=== PATIENT | male | born 1965 ===

== ENCOUNTER 2020-06-25 09:39 | Outpatient (REF) | payer OTHER, SELFPAY ==
[2020-06-25 10:38] LABS: MANUAL DIFF FLAG NO
[2020-06-25 10:41] LABS: Basophils Absolute Auto 0.1 X10*3/uL (0.0-0.2); Basophils Percent Auto 1.8 % (0-2); Eosinophils Absolute Auto 0.5 X10*3/uL (0.0-0.4); Eosinophils Percent Auto 10.7 % (0-4); Hematocrit 50.2 % (42-52); Imm Gran Abs Auto 0.02 X10*3/uL (0.00-0.03); Imm Gran Pct Auto 0.4 % (0.0-0.4); Lymphocytes Absolute Auto 1.9 X10*3/uL (1.2-4.9); Lymphocytes Percent Auto 37.4 % (20-40); Mean Corpuscular HGB Conc 33.9 g/dl (31.0-36.0); Mean Corpuscular Hemoglobin 31.1 pg (27.0-33.0); Mean Corpuscular Volume 91.8 fL (80-98); Mean Platelet Volume 9.5 fL (9.4-12.4); Monocytes Absolute Auto 0.6 X10*3/uL (0.1-1.2); Monocytes Percent Auto 11.3 % (2-11); Neutrophils Absolute Auto 1.9 X10*3/uL (2.0-8.3); Neutrophils Percent Auto 38.4 % (45-73); Platelet Count 219 X10*3/uL (160-400); Red Blood Count 5.47 X10*6/uL (4.60-5.80); Red Cell Distribution Width 13.2 % (11.0-16.0)
[2020-06-25 11:05] LABS: Glucose Urine UA NEG (NEG); Leukocyte Esterase Urine NEG (NEG); Nitrite Urine NEG (NEG); Urine Blood NEG (NEG); Urine Ketones NEG (NEG); Urine Protein NEG (NEG-TRACE)
[2020-06-25 11:07] LABS: Appearance Urine CLEAR; Color Urine YELLOW
[2020-06-25 11:15] LABS: Alanine Aminotransferase 111 U/L (0-40); Albumin Level 4.5 g/dL (3.5-5.0); Alkaline Phosphatase 60 U/L (39-117); Anion Gap 12 (12-20); Aspartate Amino Transferase 43 U/L (5-37); Bilirubin Total 0.9 mg/dL (0.0-1.0); Blood Urea Nitrogen 20 mg/dL (9-16); Calcium 9.4 mg/dL (8.4-10.2); Carbon Dioxide 30 mmol/L (22-29); Chloride 105 mmol/L (96-108); Cholesterol 178 mg/dL; Estimated Glomerular Filt Rate > 60; Glucose Fasting 105 mg/dL (60-99); HDL Cholesterol 42 mg/dL; LDL Cholesterol Calculated 108 mg/dl; Potassium 4.6 mmol/L (3.3-5.1); Sodium 142 mmol/L (135-145); Total Protein 7.4 g/dL (6.5-8.0); Triglycerides 143 mg/dL
[2020-06-25 11:41] LABS: Prostate Specific Antigen Scr 2.37 ng/mL (<0.05-4.0); TSH reflex Free T4 1.57 uIU/mL (0.32-4.0)
== END 2020-06-25 09:40 | disposition home or self-care (01) ==
LOC: HO.WFDLDS 09:39
PROVIDERS: Visit Provider Family Medicine
DX: Z12.5 Encounter for screening for malignant neoplasm of prostate (principal); Z00.00 Encounter for general adult medical examination without abnormal findings; R39.11 Hesitancy of micturition; R06.02 Shortness of breath; R09.02 Hypoxemia; Z86.16 Personal history of COVID-19
CPT/HCPCS: 36415; 80053; 80061; 81003; 84153; 84443; 85025

== ENCOUNTER 2020-10-01 08:39 | Outpatient (REF) | payer OTHER, SELFPAY ==
[2020-10-01 11:56] LABS: Alanine Aminotransferase 75 U/L (0-40); Albumin Level 4.2 g/dL (3.5-5.0); Alkaline Phosphatase 65 U/L (39-117); Anion Gap 12 (12-20); Aspartate Amino Transferase 30 U/L (5-37); Bilirubin Total 0.9 mg/dL (0.0-1.0); Blood Urea Nitrogen 19 mg/dL (9-16); Calcium 9.2 mg/dL (8.4-10.2); Carbon Dioxide 26 mmol/L (22-29); Chloride 106 mmol/L (96-108); Estimated Glomerular Filt Rate > 60; Glucose Fasting 105 mg/dL (60-99); Potassium 4.4 mmol/L (3.3-5.1); Sodium 140 mmol/L (135-145); Total Protein 6.7 g/dL (6.5-8.0)
== END 2020-10-01 08:40 | disposition home or self-care (01) ==
LOC: HO.WFDLDS 08:39
PROVIDERS: PCP Family Medicine; Visit Provider Family Medicine
DX: Z00.00 Encounter for general adult medical examination without abnormal findings (principal); R74.01 Elevation of levels of liver transaminase levels
CPT/HCPCS: 36415; 80053

== ENCOUNTER 2021-03-09 08:27 | Outpatient (REF) | payer OTHER, SELFPAY ==
[2021-03-09 11:25] LABS: Estimated Average Glucose 117 mg/dL; Hemoglobin A1C 149.8956 umol/L; Hemoglobin A1c % 5.7 %
[2021-03-09 11:30] LABS: Alanine Aminotransferase 85 U/L (0-40); Albumin Level 4.1 g/dL (3.5-5.0); Alkaline Phosphatase 61 U/L (39-117); Anion Gap 12 (12-20); Aspartate Amino Transferase 32 U/L (5-37); Bilirubin Total 0.7 mg/dL (0.0-1.0); Blood Urea Nitrogen 17 mg/dL (9-16); Carbon Dioxide 25 mmol/L (22-29); Chloride 107 mmol/L (96-108); Estimated Glomerular Filt Rate > 60; Glucose Fasting 106 mg/dL (60-99); Potassium 4.3 mmol/L (3.3-5.1); Sodium 140 mmol/L (135-145); Total Protein 6.9 g/dL (6.5-8.0)
== END 2021-03-09 08:28 | disposition home or self-care (01) ==
LOC: HO.WFDLDS 08:27
PROVIDERS: Hospitalist; Visit Provider Family Medicine
DX: Z00.00 Encounter for general adult medical examination without abnormal findings (principal); R74.01 Elevation of levels of liver transaminase levels; R73.01 Impaired fasting glucose
CPT/HCPCS: 36415; 80053; 83036

== ENCOUNTER 2021-05-24 08:21 | Outpatient (REF) | payer OTHER, SELFPAY ==
--- NOTE | ~2021-05-24 | US_ITS ---
EXAMINATION: US ABDOMEN LIMITED WITH LIVER ELASTOGRAPHY CLINICAL INFORMATION: Elevated transaminase. COMPARISON: None. TECHNIQUE: Real-time imaging of the abdominal viscera. Noninvasive ultrasound liver fibrosis assessment is performed using Brenton ElastPQ point quantification shear wave elastography (2D-SWE) with a C5-2 MHz transducer. Multiple elastography samples are obtained. FINDINGS: PANCREAS: The visualized pancreatic head and body are normal in appearance. The remainder of the pancreas is obscured from visualization by the overlying bowel gas. LIVER: The liver demonstrates normal size, contour and increased echogenicity. There is focal fatty sparing adjacent to the gallbladder No focal lesion or intrahepatic biliary duct dilatation. The right lobe measures 16.5 cm in length. The left lobe measures 10.9 cm in length. Portal flow is hepatopedal. Shear wave liver elastography median stiffness is 1.47 m/s (reference: normal median stiffness is 1.3 m/s or less). IQR/median stiffness to assess sampling precision is 0.19 (reference: good quality data set is IQR/median stiffness of 0.15 or less). GALLBLADDER: Normal. The gallbladder is physiologically distended without evidence of stones, sludge, polyps, wall thickening or pericholecystic fluid. COMMON BILE DUCT: Normal in caliber measuring 0.4 cm in diameter. RIGHT KIDNEY: There is anechoic cyst in the upper pole measuring 1.6 x 0.8 x 1.5 cm. There is mild pelvic fullness. No hydronephrosis. No renal calculi or focal parenchymal lesions. The kidney measures 14.9 cm in maximum dimension. FREE FLUID: None. US/US abdomen oneil w elastography IMPRESSION: 1. Diffuse echogenic liver with focal fatty sparing adjacent to the gallbladder. Anechoic cyst with calcification in the upper pole right kidney, Bosniak type II. 2. Liver elastography: Mean liver stiffness 1.47 m/s suggestive of cACLD (ruled out) REFERENCE: Society of Radiologists in Ultrasound Liver Stiffness Thresholds (2019): LIVER STIFFNESS THRESHOLDS: *Liver Stiffness equal or less than 1.3 m/s: High probability of being normal. *Liver Stiffness less than 1.7 m/s: In the absence of other known clinical signs, rules out compensated advanced chronic liver disease. *Liver Stiffness 1.7-2.1 m/s: Suggestive of compensated advanced chronic liver disease but need further test for confirmation. *Liver Stiffness over 2.1 m/s: Rules in compensated advanced chronic liver disease. *Liver Stiffness over 2.4 m/s: Suggestive of clinically significant portal hypertension. QUALITY OF DATA SET: *IQR/Median value equal or less than 0.15 implies a quality data set. *IQR/Median value over 0.15 implies a poor quality data set. SIGNIFICANT CHANGE FROM PRIOR EXAM: Significant change if liver stiffness measurement is 10% or greater from prior exam. OTHER CONSIDERATIONS: The stage of liver fibrosis may be overestimated in the setting of acute hepatitis, liver inflammation, elevated liver function tests, hepatic vascular congestion, obstructive cholestasis, non-fasting state, and infiltrative diseases such as amyloidosis and lymphoma. In some patients with NAFLD, the liver stiffness thresholds for compensated advanced chronic liver disease may be lower. In causes other than viral hepatitis and NAFLD, liver stiffness thresholds are not well established.
== END 2021-05-24 08:22 | disposition home or self-care (01) ==
LOC: HO.US 08:21
PROVIDERS: PCP Family Medicine; Visit Provider Family Medicine
DX: R74.01 Elevation of levels of liver transaminase levels (principal)
CPT/HCPCS: 76705; 76981

== ENCOUNTER 2021-09-02 07:59 | Outpatient (REF) | payer OTHER, SELFPAY ==
--- NOTE | ~2021-09-02 | US_ITS ---
EXAMINATION: US RETROPERITONEAL LIMITED (RENAL ONLY) CLINICAL INFORMATION: Cyst of kidney, acquired. COMPARISON: Ultrasound abdomen limited 05/24/2021. TECHNIQUE: Real-time imaging of the kidneys. FINDINGS: RIGHT KIDNEY: 13.9 x 6.0 x 8.2 cm (SAG x AP x TRV). The kidney is normal in size, contour, and echogenicity. Renal cortical thickness is normal. There may be a duplicated right renal collecting system. There are several right renal cysts. Largest measures 1.5 cm with peripheral calcification. No renal calculi or hydronephrosis. LEFT KIDNEY: 13.2 x 6.4 x 6.3 cm (SAG x AP x TRV). The kidney is normal in size, contour, and echogenicity. Renal cortical thickness is normal. There are multiple peripelvic left renal cysts. Largest cyst measures 2.7 x 1.6 x 1.4 cm in the upper pole. No renal calculi or hydronephrosis. US/US renal BI IMPRESSION: Bilateral renal cysts similar to April 2021 exam.
== END 2021-09-02 08:00 | disposition home or self-care (01) ==
LOC: HO.US 07:59
PROVIDERS: Visit Provider Family Medicine
DX: N28.1 Cyst of kidney, acquired (principal)
CPT/HCPCS: 76775

== ENCOUNTER → 2022-05-30 12:58 | Outpatient (BNVA) | payer OTHER, SELFPAY | PROVIDERS: PCP Family Medicine; Visit Provider Nurse Practitioner Family | DX: G47.30 Sleep apnea, unspecified (principal); G47.19 Other hypersomnia; R06.83 Snoring | CPT/HCPCS: 99202 ==

== ENCOUNTER → 2022-06-02 14:26 | Outpatient (REF) | payer OTHER, SELFPAY | LOC: HO.SL 14:26 | PROVIDERS: Visit Provider Nurse Practitioner Family | DX: G47.33 Obstructive sleep apnea (adult) (pediatric) (principal); G47.19 Other hypersomnia | CPT/HCPCS: 95806 ==

== ENCOUNTER → 2022-09-19 14:27 | Outpatient (BNVA) | payer OTHER, SELFPAY | PROVIDERS: PCP Family Medicine; Visit Provider Nurse Practitioner Family | DX: G47.33 Obstructive sleep apnea (adult) (pediatric) (principal); Z99.89 Dependence on other enabling machines and devices | CPT/HCPCS: 99212 ==

== ENCOUNTER 2023-11-27 10:22 | Outpatient (AMB) | payer OTHER, SELFPAY ==
--- NOTE | 2023-11-27 10:25 | MHC.PC.OV ---
Vital Signs 11/27/23 10:28 Height 6 ft 3 in Weight 236 lb 6 oz BMI 29.5 BP 110/62 Blood Pressure Location Lt brachial Position Sitting Pulse 74 Pulse Source Pulse Oximeter Pulse Oximetry (%) 97 Oxygen Delivery Method Room Air Intake Visit Reasons: f/u chronic conditions Intake Note: Patient is here to follow up on ERIK, Asthma, Pre-DM. Natural Sciences Department Chair Required: No Training Program Manager: Not Required per policy Accompanied by: Self / Same As Patient Allergies Sulfa (Sulfonamide Antibiotics) Allergy (Mild, Verified 11/27/23 10:28) Rash Tobacco use date assessed: 11/27/23 Dental Screening Dental Screen Date: 11/27/23 Did you have a dental visit in the last 12 months?: Yes Did you have a dental problem in the last 6 months where you did not have access to dental care?: No Was dental information given to patient?: Patient has dentist HPI f/u chronic conditions HPI Details 58 y/o male presents to f/u chronic conditions such as elevated liver enzymes, pre-diabetes. No recent labs to review. Last A1c 05/29/22 5.9%. A1c today 11/27/23 is 5.5%. Had seen sleep medicine and is now on a CPAP machine. He reports sleep much improved. He reports asthma has worsened - pt states he had went to the ED and cardiac work up was negative. [facility] Medical History Lyme disease Surgical History Hx of tonsillectomy Social History Housing: House Alcohol intake: current Alcohol intake frequency: holidays/special occasions only Patient Tobacco Use Status: Never used Tobacco e-Cigarette/Vaping Use: Never Used Second Hand Smoke Exposure: No service: No Current occupational status: employed Cognitive needs: No Hearing needs: No Vision needs: Yes (Glasses) Questionnaire PHQ-9 Over the last 2 weeks, how often have you been bothered by any of the following problems? 1. Little interest or pleasure in doing things: not at all 2. Feeling down, depressed, or hopeless: not at all 3. Trouble falling or staying asleep, or sleeping too much: not at all 4. Feeling tired or having little energy: not at all 5. Poor appetite or overeating: not at all 6. Feeling bad about yourself - or that you are a failure or have let yourself or your family down: not at all 7. Trouble concentrating on things, such as reading the newspaper or watching television: not at all 8. Moving or speaking so slowly that other people could have noticed. Or the opposite - being so fidgety or restless that you have been moving around a lot more than usual: not at all 9. Thoughts that you would be better off or of hurting yourself in some way: not at all Total score: 0 Depression Screening Interpretation: Negative Depression Screening Done: Yes Source: Developed by Drs. Milan Robert, Elizabeth Foy, Byron Gamboa and colleagues, with an educational bita from [employer]. Thrive Questionnaire Date Thrive assessed: 11/27/23 I am a: Patient What is your living situation today?: I have a steady place to live Within the past 12 months, did the food you bought not last and you didn't have the money to get more?: Never true Within the past 12 months, did you worry whether your food would run out before you got money to buy more?: Never true Do you have trouble paying for medicines?: No Do you have trouble getting transportation to medical appointments?: No Do you have trouble paying your heating and electricity bill?: No Do you have trouble taking care of your child, family member or friend?: No Do you have trouble with day-to-day activities such as bathing, preparing meals, shopping, managing finances, etc.?: No Are you currently unemployed and looking for a job?: No Are you interested in more education?: No Currently or been in a relationship where the following occur: No concerns reported THRIVE Score: 0 AUDIT C Alcohol Use Questionnaire (AUDIT-C) 1. How often do you have a drink containing alcohol?: Monthly or less Total Score: 1 KYLE-7 AMB Questionnaire KYLE-7 Date KYLE - 7 assessed: 11/27/23 Feeling nervous, anxious, or on edge: 0 = Not at all Not being able to stop or control worryin = Not at all Worrying too much about different things: 0 = Not at all Trouble relaxin = Not at all Being so restless that it is hard to sit still: 0 = Not at all Becoming easily annoyed or irritable: 0 = Not at all Feeling afraid as if something awful might happen: 0 = Not at all Total KYLE-7 score (0-4 normal; 5-9 mild; 10-14 moderate; 15-21 severe): 0 Source: Developed by Drs. Milan Rboert, Elizabeth Foy, Byron Gamboa and colleagues, with an educational bita from [employer]. Review of Systems Const Denies chills, Denies fatigue, Denies fever(s), Denies headache(s) and Denies weakness ENT Denies dizziness and Denies headache(s) Card Denies dyspnea Resp Denies cough, Denies dyspnea, Denies wheezing and Denies other (shortness of breath) Musc Denies numbness and Denies tingling Neuro Denies dizziness, Denies headache(s), Denies numbness, Denies tingling and Denies weakness Psych Denies anxiety and Denies depression Endo Denies fatigue Aller/Immun Denies wheezing Physical exam (Primary Care) Vital Signs: Last Vital Signs Pulse 74 11/27/23 10:28 BP 110/62 11/27/23 10:28 Pulse Ox 97 11/27/23 10:28 Oxygen Delivery Method Room Air 11/27/23 10:28 BMI result Body Mass Index 29.5 Tobacco/Smoking Status: Tobacco use Status Tobacco use date assessed 11/27/23 11/27/23 10:33 Patient Tobacco Use Status Never used Tobacco 11/27/23 10:33 e-Cigarette/Vaping Use Never Used 11/27/23 10:33 PHQ-9: PHQ-9 Score PHQ-9: Total score 0 11/27/23 10:51 Depression Screening Interpretation: Negative Thrive Assessment: Date of Thrive Assessment Date Thrive assessed 11/27/23 11/27/23 10:33 Currently or been in a relationship where the following occur: No concerns reported Const General: well developed; No acute distress Nutritional Appearance: well nourished Orientation/consciousness: patient oriented x3 HENMT Head: Yes normocephalic and Yes atraumatic Eyes General: appearance normal, both eyes and all related structures Pupils: Equal, round and reactive pupils present EOM: EOMs intact bilaterally Resp Other: Coarse breath sounds Effort & Inspection: normal respiratory effort Auscultation: clear to auscultation bilaterally Cardio Rate: regular rate Rhythm: regular rhythm Heart sounds: S1 normal heart sound present, S2 normal heart sound present, no gallops, no murmurs and no rubs Neuro General: patient oriented x3 and gait normal Cranial nerves: Yes Equal, round and reactive pupils present Psych Affect: normal affect Results AMB Hemoglobin A1c AMB Hemoglobin A1c 5.5 % Last Edit by NASEEM Pal on 11/27/23 11:11 Assessment and Plan Assessment & Plan (1) Pre-diabetes: Code(s): R73.03 - Prediabetes Plan: Patient?has?adjusted?his?carbohydrate?intake. A1c?today?5.5%?is?back?in?top?normal?range Continue?decreased?carbohydrate?intake?and?I?encouraged?weight?loss?and?exercise We?can?follow?periodically (2) Elevated liver transaminase level: Code(s): R74.01 - Elevation of levels of liver transaminase levels Plan: Patient?will?get?labs?drawn?and?we?can?follow-up?on?liver?enzymes?at?next?visit Encouraged?weight?loss (3) ERIK on CPAP: Comment: Severe degree of sleep apnea. The AHI was 24/hr and oxygen mariaa was 79% Code(s): G47.33 - Obstructive sleep apnea (adult) (pediatric); Z99.89 - Dependence on other enabling machines and devices Plan: Patient?feels?much?better?and?more?rested?after?sleeping Blood?pressure?has?improved?as?well Continue?CPAP.??Follow-up?with?sleep?medicine?as?recommended (4) Asthma: Code(s): J45.909 - Unspecified asthma, uncomplicated Plan: Coarse?but?clear?breath?sounds History?of?exposure?to?particulate?matter/saw?dust Had?tried?rescue?inhaler?in?the?past?and?patient?had?difficulty?with?rapid?heart?rate?and?difficulty?getting?alternative?such?as?leave?albuterol Will?trial?a?controller?medication?with LABA and?steroid - if?this?is?causing?rapid?heart?rate?I?will?switch?to?steroid?only Will?send?script?for?a?rescue?inhaler?as?well?and?he?will?use?only?as?needed Referred?to?pulmonology Will?follow-up?in?a?month?to?ensure?he?has?an?appointment?with?pulmonology?and?see?how?he?is?doing?with?medications?and?make?adjustments?as?needed Orders: Orders Comprehensive [place]. Panel Fast Today R74.01 - Elevation of levels of liver transaminase levels, Z00.00 - Encounter for general adult medical examination without abnormal findings AMB Hemoglobin A1c Today R73.03 - Prediabetes Referrals Pulmonology Referral R06.02 - Shortness of breath Medications: New fluticasone propion-salmeterol 115-21 mcg/actuation (Advair HFA) 2 puffs inhalation Q12H 30 days 12 grams 1RF albuterol sulfate 90 mcg/actuation (Ventolin HFA) 1 puff inhalation Q4-6H 30 days PRN 8.5 grams 2RF shortness of breath or wheezing Coding Level of Care Code Est Pt Level 4 (46641) Diagnoses Pre-diabetes R73.03 Elevated liver transaminase level R74.01 ERIK on CPAP G47.33; Z99.89 Asthma J45.909
[2023-11-27 10:28] VITALS: BP 110/62; PULSE 74; O2SAT 97; BMI 29.5
== END 2023-11-27 11:16 | disposition home or self-care (01) ==
PROVIDERS: PCP Family Medicine; Visit Provider Family Medicine
DX: R73.03 Prediabetes (principal); R74.01 Elevation of levels of liver transaminase levels; G47.33 Obstructive sleep apnea (adult) (pediatric); Z99.89 Dependence on other enabling machines and devices; J45.909 Unspecified asthma, uncomplicated
CPT/HCPCS: 83036; 99214

== ENCOUNTER 2023-12-05 09:21 | Outpatient (AMB) | payer OTHER, SELFPAY ==
--- NOTE | 2023-12-05 09:25 | A.OFFVIS_ITS ---
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 He was referred by PCP for pulmonary evaluation. He reports dyspnea on exertion and nonproductive cough that developed a few months ago. Recently he notes that cough is improving after discovering mold in two mini splits at his home. Denies wheezing or chest tightness. Since improvements he has been using advair less frequently and has not required albuterol. Of note, when he has used albuterol MDI in the past, it has resulted in significant tremors, requesting levalbuterol. He reports seasonal allergies, no recent allergy testing. He has two dogs at home. He reports occupational exposure, working at a [employer] x 40+ years. He reports father, smoker, with COPD, otherwise no pertinent family history. [facility] Medical History Lyme disease Surgical History Hx of tonsillectomy Social History Housing: House Alcohol intake: current Alcohol intake frequency: holidays/special occasions only Patient Tobacco Use Status: Never used Tobacco e-Cigarette/Vaping Use: Never Used Second Hand Smoke Exposure: No service: No Current occupational status: employed Cognitive needs: No Hearing needs: No Vision needs: Yes (Glasses) Review of Systems Const Denies chills, Denies fatigue, Denies fever(s), Denies headache(s) and Denies weakness ENT Reports Normal hearing present, Denies dizziness and Denies headache(s) Card Reports dyspnea Resp Reports cough, Reports dyspnea and Denies wheezing Musc Denies numbness and Denies tingling Neuro Reports Normal hearing present, Denies dizziness, Denies headache(s), Denies numbness, Denies tingling and Denies weakness Psych Denies anxiety and Denies depression Endo Denies fatigue Aller/Immun Denies wheezing Physical Exam Vital Signs: Last Vital Signs Pulse 61 12/05/23 09:28 BP 128/76 12/05/23 09:28 Pulse Ox 98 12/05/23 09:28 Oxygen Delivery Method Room Air 12/05/23 09:28 BMI result Body Mass Index 29.0 Const General: cooperative, healthy appearing, comfortable, no acute distress, well developed and alert Orientation/consciousness: patient oriented x3 Limitations: no limitations HEENT Head: Yes normal to inspection, Yes normocephalic and Yes atraumatic Ears: hearing grossly normal bilaterally and external ears normal Eyes General: appearance normal, both eyes and all related structures Eyelids: Yes eyelids normal Sclerae: sclerae normal EOM: EOMs intact bilaterally Neck Neck: Yes normal visual inspection and Yes no lymphadenopathy Lymphatic: no lymphadenopathy noted Chest Chest palpation & inspection: normal inspection of the chest Resp Effort & Inspection: normal respiratory effort, able to speak in complete sentences, no audible wheezes, no cough, no stridor, not tachypneic, no tripod positioning and no use of accessory muscles Auscultation: clear to auscultation bilaterally Cardio Jugular venous distension: no JVD Rate: regular rate Rhythm: regular rhythm Skin Other: warm, dry General skin exam: no rashes or lesions noted Neuro General: patient oriented x3 Cranial nerves: Yes Normal hearing present Cognition (Neuro): normal cognition Gait exam (Neuro): Normal gait present Extrem General: Yes normal to inspection, Yes capillary refill normal, Yes no clubbing, cyanosis or edema and Yes no pedal edema Psych Appearance: grossly normal and well kempt Speech and movement: Normal speech and movement present and Clear speech present Affect: normal affect Attitude: cooperative Thought process: Normal thought process present Thought content: Normal thought content present Insight: Good insight present (Psych) Judgement: Good judgement present (Psych) Assessment & Plan Assessment & Plan (1) Asthma: Code(s): J45.909 - Unspecified asthma, uncomplicated Category: Medical (2) Environmental allergies: Code(s): Z91.09 - Other allergy status, other than to drugs and biological substances Category: Medical (3) Cough: Code(s): R05.9 - Cough, unspecified Category: Medical Plan Glen reports improvement in symptoms after decreasing mold exposure and has been decreasing his Advair use. He reports significant improvement in dyspnea and cough. At this time, encouraged use to EILEEN PRN and if symptoms recur will discuss restarting Advair. He is requesting levalbuterol, due to adverse effects of albuterol. Will send this in. Will also send for PFT and RAST. Consider imaging if symptoms worsen. All questions were answered and patient is in agreement of plan. Orders: Orders Resp Allergy Profile Region I 12/05/23 Z91.09 - Other allergy status, other than to drugs and biological substances Complete Blood Count Auto Diff 12/05/23 Z91.09 - Other allergy status, other than to drugs and biological substances Immunoglobulin E 12/05/23 Z91.09 - Other allergy status, other than to drugs and biological substances PFT pulmonary function test Today J45.909 - Unspecified asthma, uncomplicated Medications: New levalbuterol tartrate 45 mcg/actuation 1 puff inhalation Q4-6H PRN 15 grams 3RF shortness of breath Coding Level of Care Code New Pt Level 4 (58298) Diagnoses Asthma J45.909 Environmental allergies Z91.09 Cough R05.9
[2023-12-05 09:28] VITALS: BP 128/76; PULSE 61; O2SAT 98; BMI 29.0
== END 2023-12-05 10:10 | disposition home or self-care (01) ==
PROVIDERS: PCP Family Medicine; Referring Provider Family Medicine; Visit Provider Nurse Practitioner Family
DX: J45.909 Unspecified asthma, uncomplicated (principal); Z91.09 Other allergy status, other than to drugs and biological substances; R05.9 Cough, unspecified
CPT/HCPCS: 99204

== ENCOUNTER → 2023-12-05 09:21 | Outpatient (BNVA) | payer OTHER, SELFPAY | PROVIDERS: PCP Family Medicine; Referring Provider Family Medicine; Visit Provider Nurse Practitioner Family | DX: J45.909 Unspecified asthma, uncomplicated (principal); R05.9 Cough, unspecified; Z91.09 Other allergy status, other than to drugs and biological substances | CPT/HCPCS: 99202 ==

== ENCOUNTER 2023-12-05 10:23 | Outpatient (REF) | payer OTHER, SELFPAY ==
[2023-12-05 14:13] LABS: MANUAL DIFF FLAG NO
[2023-12-05 14:19] LABS: Basophils Absolute Auto 0.1 X10*3/uL (0.0-0.2); Basophils Percent Auto 1.3 % (0-2); Eosinophils Absolute Auto 0.3 X10*3/uL (0.0-0.4); Eosinophils Percent Auto 5.7 % (0-4); Hematocrit 48.2 % (42.0-52.0); Hemoglobin 16.8 g/dl (14.0-18.0); Imm Gran Abs Auto 0.01 X10*3/uL (0.00-0.03); Imm Gran Pct Auto 0.2 % (0.0-0.4); Lymphocytes Absolute Auto 1.5 X10*3/uL (1.2-4.9); Mean Corpuscular HGB Conc 34.9 g/dl (31.0-36.0); Mean Corpuscular Hemoglobin 30.8 pg (27.0-33.0); Mean Corpuscular Volume 88.4 fL (80.0-98.0); Mean Platelet Volume 10.2 fL (9.4-12.4); Monocytes Absolute Auto 0.5 X10*3/uL (0.1-1.2); Monocytes Percent Auto 11.9 % (2-11); Neutrophils Absolute Auto 2.1 x10*3/uL (2.0-8.3); Neutrophils Percent Auto 46.9 % (45-73); Platelet Count 207 X10*3/uL (160-400); Red Blood Count 5.45 X10*6/uL (4.60-5.80); White Blood Count 4.5 X10*3/uL (4.8-10.8)
[2023-12-06 14:13] LABS: Class Alternaria alternata 2; Class Aspergillus fumigatus 0/1; Class Bermuda Grass 0/1; Class Birch 2; Class Cat Dander 1; Class Cladosporium herbarum 0/1; Class Cockroach 0; Class Common Ragweed 3; Class Cottonwood 0; Class Derm. pterony 0; Class Dermatophagoides farinae 0; Class Dog Dander 2; Class Elm 0/1; Class Maple Box Elder 0; Class Mountain Cedar 0/1; Class Mouse Urine Protein 0; Class Mugwort 0/1; Class Oak 0; Class Penicillium crysogenum 0/1; Class Rough Pigweed 0; Class Sheep Sorrel 0; Class Sycamore 0; Class Timothy Grass 3; Class Walnut Tree 2; Class White Ash 0/1; Class White Mulberry 0; D001 IgE D pteronyssinus <0.10 kU/L; D002 - IgE D farinae <0.10 kU/L; E001 - IgE Cat Dander 0.44 kU/L; E005 - IgE Dog Dander 1.48 kU/L; E072-IgE Mouse Urine <0.10 kU/L; I006-IgE Cockroach, German <0.10 kU/L; Immunoglobulin E 162 kU/L (<OR=114); Immunoglobulin E 183 kU/L (<OR=114); M002 - IgE Cladosporium herbar 0.18 kU/L; M003 - IgE Aspergillus fumigat 0.18 kU/L; M006 - IgE Alternaria alternat 3.01 kU/L; T001 IgE Maple/Box Elder <0.10 kU/L; T003 IgE Common Silver Birch 0.76 kU/L; T006 - IgE Cedar, Mountain 0.11 kU/L; T007 - IgE Oak, White <0.10 kU/L; T008 IgE Elm, American 0.15 kU/L; T010 - IgE Walnut 0.74 kU/L; T011 - IgE Maple Leaf Sycamore <0.10 kU/L; T014 - IgE Cottonwood <0.10 kU/L; T015 - IgE Ash, White 0.11 kU/L; T070 - IgE White Mulberry <0.10 kU/L; W001 - IgE Ragweed, Short 4.05 kU/L; W006 - IgE Mugwort 0.11 kU/L; W014 IgE Pigweed, Common <0.10 kU/L; W018 IgE Sheep Sorrel <0.10 kU/L
== END 2023-12-05 10:24 | disposition home or self-care (01) ==
LOC: HO.WFDLDS 10:23
PROVIDERS: Visit Provider Nurse Practitioner Family
DX: Z91.09 Other allergy status, other than to drugs and biological substances (principal)
CPT/HCPCS: 36415; 82785; 85025; 86003

== ENCOUNTER 2024-01-08 08:41 | Outpatient (REF) | payer OTHER, SELFPAY ==
[2024-01-08 11:36] LABS: Alanine Aminotransferase 67 U/L (0-40); Albumin Level 4.1 g/dL (3.5-5.0); Alkaline Phosphatase 53 U/L (39-117); Anion Gap 10 (12-20); Aspartate Amino Transferase 26 U/L (5-37); Bilirubin Total 0.6 mg/dL (0.0-1.0); Blood Urea Nitrogen 17 mg/dL (9-16); Calcium 8.9 mg/dL (8.4-10.2); Carbon Dioxide 28 mmol/L (22-29); Chloride 104 mmol/L (96-108); Estimated Glomerular Filt Rate > 60; Glucose Fasting 97 mg/dL (60-99); Potassium 4.3 mmol/L (3.3-5.1); Sodium 138 mmol/L (135-145)
== END 2024-01-08 08:42 | disposition home or self-care (01) ==
LOC: HO.WFDLDS 08:41
PROVIDERS: Visit Provider Family Medicine
DX: Z00.00 Encounter for general adult medical examination without abnormal findings (principal); R74.01 Elevation of levels of liver transaminase levels
CPT/HCPCS: 36415; 80053

== ENCOUNTER 2024-01-10 10:17 | Outpatient (AMB) | payer OTHER, SELFPAY ==
--- NOTE | 2024-01-10 10:29 | MHC.PC.OV ---
Vital Signs 01/10/24 10:32 Height 6 ft 3 in Weight 239 lb 8 oz BMI 29.9 BP 110/70 Blood Pressure Location Lt brachial Position Sitting Respiration 20 Pulse 64 Pulse Source Pulse Oximeter Temp 96.9 F Temp Source Tympanic Pulse Oximetry (%) 98 Oxygen Delivery Method Room Air Intake Visit Reasons: f/u asthma, elevated liver enzymes Intake Note: F/u for asthma and lab review Allergies Sulfa (Sulfonamide Antibiotics) Allergy (Mild, Verified 01/10/24 10:29) Rash Tobacco use date assessed: 11/27/23 Dental Screening Dental Screen Date: 11/27/23 HPI f/u asthma, elevated liver enzymes HPI Details 58 y/o male presents to f/u asthma/shortness of breath and elevated liver enzymes. He has had some issues with getting medications that do not cause rapid heart rate and frequent albuterol use causes these symptoms. Trialed controller medication and refilled rescue inhaler. Had referred him to pulmonology. Had seen them 12/05/23 - he had noted improvement in symptoms after decreasing Advair use and decreasing mold exposure. They had encouraged use to EILEEN PRN. Labs drawn 01/08/24. Reviewed labs with pt. Elevated ALT of 67. Has been taking albuterol once a day. He notes advair continues to make him feel jittery. Has complaints of abnormal stools. HPI Comments History of Present Illness Details Documentation assistance for Jama Kendrick MD, was provided by Oliver Ferguson, Java Project Manager on 01/10/2024 at 10:49 AM EST. I, Dr. Kendrick, have read, observed, and verified documentation. [facility] Medical History (Reviewed 06/15/21 @ 08:36 by Angelique Beltran [facility]) Lyme disease Surgical History Hx of tonsillectomy Social History Housing: House Alcohol intake: current Alcohol intake frequency: holidays/special occasions only Patient Tobacco Use Status: Never used Tobacco e-Cigarette/Vaping Use: Never Used Second Hand Smoke Exposure: No service: No Current occupational status: employed Cognitive needs: No Hearing needs: No Vision needs: Yes (Glasses) Questionnaire Thrive Questionnaire Date Thrive assessed: 11/27/23 KYLE-7 AMB Questionnaire KYLE-7 Date KYLE - 7 assessed: 11/27/23 Source: Developed by Drs. Milan Robert, Elizabeth Foy, Byron Gamboa and colleagues, with an educational bita from [employer]. Review of Systems Const Denies chills, Denies fatigue, Denies fever(s), Denies headache(s) and Denies weakness ENT Denies dizziness and Denies headache(s) Card Denies dyspnea Resp Denies cough, Denies dyspnea, Denies wheezing and Denies other (shortness of breath) Musc Denies numbness and Denies tingling Neuro Denies dizziness, Denies headache(s), Denies numbness, Denies tingling and Denies weakness Psych Denies anxiety and Denies depression Endo Denies fatigue Aller/Immun Denies wheezing Physical exam (Primary Care) Vital Signs: Last Vital Signs Temp 96.9 F 01/10/24 10:32 Pulse 64 01/10/24 10:32 Resp 20 01/10/24 10:32 BP 110/70 01/10/24 10:32 Pulse Ox 98 01/10/24 10:32 Oxygen Delivery Method Room Air 01/10/24 10:32 BMI result Body Mass Index 29.9 Tobacco/Smoking Status: Tobacco use Status Tobacco use date assessed 11/27/23 01/10/24 10:30 Patient Tobacco Use Status Never used Tobacco 01/10/24 10:30 e-Cigarette/Vaping Use Never Used 01/10/24 10:30 Thrive Assessment: Date of Thrive Assessment Date Thrive assessed 11/27/23 01/10/24 10:30 Const General: well developed; No acute distress Nutritional Appearance: well nourished Orientation/consciousness: patient oriented x3 HENMT Head: Yes normocephalic and Yes atraumatic Eyes General: appearance normal, both eyes and all related structures Pupils: Equal, round and reactive pupils present EOM: EOMs intact bilaterally Resp Effort & Inspection: normal respiratory effort Neuro General: patient oriented x3 and gait normal Cranial nerves: Yes Equal, round and reactive pupils present Psych Affect: normal affect Assessment and Plan Assessment & Plan (1) Asthma: Code(s): J45.909 - Unspecified asthma, uncomplicated Plan: Patient?says?asthma?symptoms?have?improved?significantly?after?cleaning?split?unit?air?conditioners?in?his?home. He?has?allergen?workup?with?pulmonology Using?leave?albuterol?as?needed We?had?discussed?LABA/steroid?combo?at?last?visit?and?could?use?this?or?inhaled?corticosteroid?if?he?is?getting?jitters?from LABA.??He?will?let?me?know?or?his?compensation adjuster?know?if?he?is?needing?controller?medication. Follow-up?with?pulmonology (2) Elevated liver transaminase level: Code(s): R74.01 - Elevation of levels of liver transaminase levels Plan: Liver?enzymes?trending?down Continue?to?work?at?good?hydration Encouraged?weight?loss Avoid?alcohol?and?Tylenol Will?recheck?in?a?few?months (3) Abnormal stools: Code(s): R19.5 - Other fecal abnormalities Plan: Patient?says?he?saw?worm-like organisms?in?stool No?abdominal?pain,?fevers?or?chills?or?appetite?changes.??No?blood?in?stools Will?check?ova?and?parasites?as?well?as?fecal?leukocytes (4) Abnormal stools: Code(s): R19.5 - Other fecal abnormalities Orders: Orders Leukocytes Stool Qualitative Today R19.5 - Other fecal abnormalities Ova and Parasite Today R19.5 - Other fecal abnormalities Coding Level of Care Code Est Pt Level 3 (17708) Diagnoses Asthma J45.909 Elevated liver transaminase level R74.01 Abnormal stools R19.5
[2024-01-10 10:32] VITALS: BP 110/70; PULSE 64; RESP 20; TEMP 36.1; O2SAT 98; BMI 29.9
== END 2024-01-10 11:12 | disposition home or self-care (01) ==
PROVIDERS: PCP Family Medicine; Visit Provider Family Medicine
DX: J45.909 Unspecified asthma, uncomplicated (principal); R74.01 Elevation of levels of liver transaminase levels; R19.5 Other fecal abnormalities
CPT/HCPCS: 99213

== ENCOUNTER 2024-01-15 09:05 | Outpatient (AMB) | payer OTHER, SELFPAY ==
--- NOTE | 2024-01-15 08:44 | A.OFFVIS_ITS ---
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 Initially patient reported dyspnea on exertion and nonproductive cough that developed a few months ago however once he removed mold from two mini splits at his home, symptoms resolved. He currently denies any respiratory symptoms. At the last visit, levalbuterol was prescribed as he noted adverse effects with albuterol, which he has used very infrequently. Today he presents to review RAST results. He is awaiting PFT to be scheduled through [facility]. [facility] Medical History Lyme disease Surgical History Hx of tonsillectomy Social History Housing: House Alcohol intake: current Alcohol intake frequency: holidays/special occasions only Patient Tobacco Use Status: Never used Tobacco e-Cigarette/Vaping Use: Never Used Second Hand Smoke Exposure: No service: No Current occupational status: employed Cognitive needs: No Hearing needs: No Vision needs: Yes (Glasses) Review of Systems Const Denies chills, Denies excessive sweating, Denies fever(s), Denies headache(s) and Denies night sweats Eyes Denies dry eyes, Denies irritation and Denies itchy eyes ENT Reports Normal hearing present, Denies headache(s), Denies nasal congestion, Denies nasal discharge, Denies post nasal drip and Denies sore throat Card Denies chest pain, Denies chest pain at rest, Denies chest pain with activity, Denies claudication, Denies leg edema, Denies dyspnea, Denies dyspnea on exe rtion, Denies orthopnea and Denies paroxysmal nocturnal dyspnea Resp Denies chest congestion, Denies cough, Denies excessive phlegm production, Denies pain on inspiration, Denies pain with cough, Denies dyspnea, Denies dyspnea on exertion, Denies stridor and Denies wheezing Musc Denies myalgias Neuro Reports Normal hearing present and Denies headache(s) Endo Denies excessive sweating Stef/Lymph Denies lymphadenopathy Aller/Immun Denies itchy eyes, Denies seasonal rhinorrhea and Denies wheezing Physical Exam Vital Signs: Last Vital Signs Pulse 66 01/15/24 09:07 BP 124/78 01/15/24 09:07 Pulse Ox 96 01/15/24 09:07 Oxygen Delivery Method Room Air 01/15/24 09:07 BMI result Body Mass Index 30.0 Const General: cooperative, healthy appearing, comfortable, no acute distress, well developed and alert Orientation/consciousness: patient oriented x3 Limitations: no limitations HEENT Head: Yes normal to inspection, Yes normocephalic and Yes atraumatic Ears: hearing grossly normal bilaterally and external ears normal Eyes General: appearance normal, both eyes and all related structures Eyelids: Yes eyelids normal Sclerae: sclerae normal EOM: EOMs intact bilaterally Neck Neck: Yes normal visual inspection and Yes no lymphadenopathy Lymphatic: no lymphadenopathy noted Chest Chest palpation & inspection: normal inspection of the chest Resp Effort & Inspection: normal respiratory effort, able to speak in complete sentences, no audible wheezes, no cough, no stridor, not tachypneic, no tripod positioning and no use of accessory muscles Auscultation: clear to auscultation bilaterally Cardio Jugular venous distension: no JVD Rate: regular rate Rhythm: regular rhythm Skin Other: warm, dry General skin exam: no rashes or lesions noted Neuro General: patient oriented x3 Cranial nerves: Yes Normal hearing present Cognition (Neuro): normal cognition Gait exam (Neuro): Normal gait present Extrem General: Yes normal to inspection, Yes capillary refill normal, Yes no clubbing, cyanosis or edema and Yes no pedal edema Psych Appearance: grossly normal and well kempt Speech and movement: Normal speech and movement present and Clear speech present Affect: normal affect Attitude: cooperative Thought process: Normal thought process present Thought content: Normal thought content present Insight: Good insight present (Psych) Judgement: Good judgement present (Psych) Assessment & Plan Assessment & Plan (1) Asthma: Code(s): J45.909 - Unspecified asthma, uncomplicated Category: Medical (2) Environmental allergies: Code(s): Z91.09 - Other allergy status, other than to drugs and biological substances Category: Medical (3) Cough: Code(s): R05.9 - Cough, unspecified Category: Medical Plan Reviewed RAST which revealed multiple environmental allergies. Encouraged antihistamine vs singulair. He would like to hold off at this time as respiratory symptoms are controlled. PFT ordered at the last visit, awaiting to be scheduled. Advised to use levalbuterol PRN, if uses consistently will consider daily inhaler. All questions were answered and patient is in agreement of plan. Will follow up to review results or sooner if needed. Coding Level of Care Code Est Pt Level 3 (23549) Diagnoses Asthma J45.909 Environmental allergies Z91.09 Cough R05.9
[2024-01-15 09:07] VITALS: BP 124/78; PULSE 66; O2SAT 96
== END 2024-01-15 09:36 | disposition home or self-care (01) ==
PROVIDERS: PCP Family Medicine; Visit Provider Nurse Practitioner Family
DX: J45.909 Unspecified asthma, uncomplicated (principal); Z91.09 Other allergy status, other than to drugs and biological substances; R05.9 Cough, unspecified
CPT/HCPCS: 99213

== ENCOUNTER → 2024-01-15 09:05 | Outpatient (BNVA) | payer OTHER, SELFPAY | PROVIDERS: PCP Family Medicine; Visit Provider Nurse Practitioner Family | DX: J45.909 Unspecified asthma, uncomplicated (principal); G47.33 Obstructive sleep apnea (adult) (pediatric); Z99.89 Dependence on other enabling machines and devices; Z79.01 Long term (current) use of anticoagulants; Z86.718 Personal history of other venous thrombosis and embolism; Z91.09 Other allergy status, other than to drugs and biological substances | CPT/HCPCS: 99212 ==

== ENCOUNTER 2024-02-06 08:46 | Outpatient (AMB) | payer OTHER, SELFPAY ==
[2024-02-06 08:48] VITALS: BP 128/82; BMI 30.1
--- NOTE | 2024-02-06 08:48 | A.OFFVIS_ITS ---
Vital Signs 02/06/24 08:48 Height 6 ft 3 in Weight 241 lb BMI 30.1 BP 128/82 Blood Pressure Location Rt brachial Position Sitting Intake Visit Reasons: 1 yr f/u appt for sleep Intake Note: Patient presents for follow up. Allergies Sulfa (Sulfonamide Antibiotics) Allergy (Mild, Verified 02/06/24 08:50) Rash HPI Comments Details: 58-yr-old male presents for follow-up visit of sleep apnea. Pt reports he was having some difficulty breathing, however this has improved significantly within a few weeks of realizing split AC unit was growing mold and cleaning it. Since the last visit, pt did switch from a full face mask to a nasal mask, which is working much better. His residual AHI has reduced to <5/hr. He is changing and cleaning his CPAP supplies- wonders if the gaskets can be changed as well. [place] [id number] Email: [email or web address] Compliance Report Usage 01/07/2024 - 02/05/2024 Usage days 30/30 days (100%) >= 4 hours 30 days (100%) Average usage (days used) 8 hours 40 minutes AirSense 10 AutoSet Serial number [id number] Mode AutoSet Min Pressure 5 cmH2O Max Pressure 20 cmH2O EPR Fulltime EPR level 3 Response Standard Therapy Pressure - cmH2O Median: 6.9 95th percentile: 8.7 Maximum: 9.9 Leaks - L/min Median: 0.8 95th percentile: 8.2 Maximum: 17.5 Events per hour AI: 0.1 HI: 0.1 AHI: 0.2 Apnea Index Central: 0.0 Obstructive: 0.1 Unknown: 0.0 PFSH Medical History Lyme disease Surgical History Hx of tonsillectomy Social History Housing: House Alcohol intake: current Alcohol intake frequency: holidays/special occasions only Patient Tobacco Use Status: Never used Tobacco e-Cigarette/Vaping Use: Never Used Second Hand Smoke Exposure: No service: No Current occupational status: employed Cognitive needs: No Hearing needs: No Vision needs: Yes (Glasses) Physical Exam Vital Signs: Last Vital Signs BP 128/82 02/06/24 08:48 BMI result Body Mass Index 30.1 Const General: no acute distress Orientation/consciousness: patient oriented x3 HEENT Other: Mallampati stage Resp Effort & Inspection: normal respiratory effort and able to speak in complete sentences Neuro General: patient oriented x3 Psych Mental Status: mental status grossly normal Speech and movement: Clear speech present Attitude: cooperative Assessment & Plan Assessment & Plan (1) ERIK on CPAP: Comment: Severe degree of sleep apnea. The AHI was 24/hr and oxygen mariaa was 79% Code(s): G47.33 - Obstructive sleep apnea (adult) (pediatric); Z99.89 - Dependence on other enabling machines and devices Category: Medical Plan . Continue APAP 5-20 cmH2O w/ EPR 3 nightly > 4 hours, as pt continues to have good clinical effect from use.. Clean CPAP machine and supplies routinely. Change CPAP supplies routinely. Pt to contact us or respiratory company with any questions or concerns. Pt to follow-up in 12 months or sooner prn. Coding Level of Care Code Est Pt Level 3 (62228) Diagnoses ERIK on CPAP G47.33; Z99.89
== END 2024-02-06 09:35 | disposition home or self-care (01) ==
PROVIDERS: Absent Provider Nurse Practitioner Family; Visit Provider Nurse Practitioner Family
DX: G47.33 Obstructive sleep apnea (adult) (pediatric) (principal); Z99.89 Dependence on other enabling machines and devices
CPT/HCPCS: 99213

== ENCOUNTER → 2024-02-06 08:46 | Outpatient (BNVA) | payer OTHER, SELFPAY | PROVIDERS: Absent Provider Nurse Practitioner Family; Visit Provider Nurse Practitioner Family | DX: G47.33 Obstructive sleep apnea (adult) (pediatric) (principal); Z99.89 Dependence on other enabling machines and devices | CPT/HCPCS: 99212 ==

== ENCOUNTER 2024-04-11 15:25 | Outpatient (AMB) | payer OTHER, SELFPAY ==
--- NOTE | 2024-04-11 16:56 | A.OFFPC_ITS ---
Intake Visit Reasons: f/u elevated liver enzymes via telemedicine Allergies Sulfa (Sulfonamide Antibiotics) Allergy (Mild, Verified 04/11/24 16:55) Rash Medication List - Last Reconciled 04/11/24 by Nereida Aquino [facility]- albuterol sulfate 90 mcg/actuation (Ventolin HFA) 1 puff inhalation Q4-6H PRN 30 days fluticasone propion-salmeterol 115-21 mcg/actuation (Advair HFA) 2 puffs inhalation Q12H 30 days levalbuterol tartrate 45 mcg/actuation 1 puff inhalation Q4-6H PRN rivaroxaban (Xarelto) 20 mg PO DAILY 90 days Tobacco use date assessed: 11/27/23 Dental Screening Dental Screen Date: 11/27/23 HPI HPI Comments History of Present Illness Details History of Present Illness The patient is a 58-year-old male presenting with follow-up on elevated liver enzymes. The liver enzyme abnormalities were initially identified in December, and the patient has not had repeat laboratory testing since then. He was recommended to hydrate adequately, avoid alcohol, and refrain from using Tylenol. No specific symptoms related to liver enzyme elevation were reported. Additionally, the patient mentioned having a recent stomach bug with symptoms of nausea but denied any significant abdominal pain or other gastrointestinal issues since the prior diagnosis. The patient also has a history of environmental allergies, experiencing exacerbations particularly in response to mice, cats, or mold. Despite current use of a homeopathic antihistamine with good effect, he reports intensified respiratory symptoms since harlan COVID-19. He previously tolerated prednisone well and expressed interest in having a prescription for it in emergencies involving significant respiratory distress, which he associates with these allergens. The use of Singulair for prophylactic management of reactive airways was discussed but the patient prefers to minimize the use of daily medications due to concerns about side effects. Review of Systems - Gastrointestinal: Reports nausea assoc iated with a stomach bug; denies abdominal pain. - Pulmonary: Reports respiratory distres s associated with certain allergens, previous exacerbations requiring prednisone. Patient was informed and verbally consented to the use of an ambient scribe for clinic note documentation during this visit. Discussion Notes During the consultation, we discussed the necessity to repeat liver enzyme testing due to prior elevations. I recommended the patient hydrate and avoid alcohol to support liver function further. I addressed the patient?s concerns about respiratory distress from environmental allergens and provided a prescription for prednisone for emergency use, underscoring its use only when absolutely necessary. We reviewed alternative long-term management strategies for allergies, such as Singulair, but he expressed a preference for minimizing daily medications due to side effects. I informed him about the availability of walk-in clinics and stressed the importance of avoiding potential respiratory triggers. Patient Instructions - Schedule and complete liver enzyme heather ting at your convenience. - Use prednisone only in emergencies whe re respiratory distress occurs due to allergens. - Continue current medication regimen fo r blood clots. - Avoid alcohol, Tylenol, and known envi ronmental triggers such as mice, cats, and mold. - Consider visiting primary walk-in or [facility] clinics for immediate healthcare access if needed. - Report any use of prednisone or signif icant changes in health through the patient portal. This note is constructed using voice recognition software. While every effort has been made to ensure accuracy in esl professor, still errors may have been included Sometimes, these errors may affect the content or meaning of the given sentence . Total time spent caring for the patient today was 30 minutes. This includes time spent before the visit reviewing the chart, time spent during the visit, and time spent after the visit on documentation [facility] Medical History Lyme disease Surgical History Hx of tonsillectomy Social History Housing: House Alcohol intake: current Alcohol intake frequency: holidays/special occasions only Patient Tobacco Use Status: Never used Tobacco e-Cigarette/Vaping Use: Never Used Second Hand Smoke Exposure: No service: No Current occupational status: employed Cognitive needs: No Hearing needs: No Vision needs: Yes (Glasses) Questionnaire Thrive Questionnaire Date Thrive assessed: 11/27/23 KYLE-7 AMB Questionnaire KYLE-7 Date KYLE - 7 assessed: 11/27/23 Source: Developed by Drs. Milan Robert, Elizabeth Foy, Byron Gamboa and colleagues, with an educational bita from [employer]. Physical exam (Primary Care) Tobacco/Smoking Status: Tobacco use Status Tobacco use date assessed 11/27/23 01/10/24 10:30 Patient Tobacco Use Status Never used Tobacco 01/10/24 10:30 e-Cigarette/Vaping Use Never Used 01/10/24 10:30 Thrive Assessment: Date of Thrive Assessment Date Thrive assessed 11/27/23 01/10/24 10:30 Telehealth Telehealth Telehealth Platform: [employer] Location of provider rendering services: practice address Location of patient: address on file Patient Identification confirmed using: Name, : Yes Telehealth method: voice only Patient verbally consented to treatment: Yes Patient verbally consented to billing insurance company: Yes Patient informed of any privacy concerns related to visit: Yes Minutes spent on Phone/Video with Pt.: 15 Coding Level of Care Code Tele Est Pt Level 4 (83661) Complex EM visit Add On G2211 Diagnoses Elevated liver transaminase level R74.01 Environmental allergies Z91.09 Mild intermittent asthma without complication J45.20 Asthma severity: mild Asthma persistence: intermittent Asthma complication type: uncomplicated Assessment & Plan Assessment & Plan (1) Elevated liver transaminase level: Code(s): R74.01 - Elevation of levels of liver transaminase levels Category: Medical (2) Environmental allergies: Code(s): Z91.09 - Other allergy status, other than to drugs and biological substances Category: Medical (3) Asthma: Code(s): J45.909 - Unspecified asthma, uncomplicated Category: Medical Qualifiers: Asthma severity: mild Asthma persistence: intermittent Asthma complication type: uncomplicated Qualified Code(s): J45.20 - Mild intermittent asthma, uncomplicated Plan . Orders: Orders Comprehensive Met. Panel Today R74.01 - Elevation of levels of liver transaminase levels Medications: New prednisone 20 mg PO DAILY 5 tabs 0RF
== END 2024-04-11 17:07 | disposition home or self-care (01) ==
LOC: HO.HMCFM 15:25
PROVIDERS: PCP Family Medicine; Visit Provider Nurse Practitioner Family
DX: R74.01 Elevation of levels of liver transaminase levels (principal); Z91.09 Other allergy status, other than to drugs and biological substances; J45.20 Mild intermittent asthma, uncomplicated

== ENCOUNTER → 2024-04-11 15:25 | Outpatient (BNVA) | payer OTHER, SELFPAY | PROVIDERS: PCP Family Medicine; Visit Provider Nurse Practitioner Family ==

== ENCOUNTER 2024-06-12 07:45 | Outpatient (REF) | payer OTHER, SELFPAY ==
--- NOTE | 2024-06-12 07:47 | PFT_ITS ---
Indication: Asthma Spirometry [FEV1 to FVC 79%; FEV1 3.63 L; FVC 4.6 L. No significant response to bronchodilators.] Lung Volumes [Tessalon capacity 72% predicted; residual volume 52% predicted; expiratory reserve volume 49% predicted] Diffusion Capacity [DLCO 101% predicted] Comparisons [none] Interpretation [No obstructive ventilatory defects. No significant response to bronchodilators noted. The patient does have a restrictive ventilatory defect consistent with mild restrictive lung disease. Could be related to an elevated BMI although parenchymal lung conditions and or neuromuscular conditions needs to be considered. Diffusing capacity is within normal limits. Clinical correlation warranted.] MTDD
--- OUTSIDE RECORDS SUMMARY | 2024-06-12 07:47 | XMS_ITS | Clinical Summary ---
Author Organization [facility] Address [address] [place] [address] Care Team Providers Care Bit Setter Name Role Phone Nicol Rivera MD Primary Care Provider [phone] Allergies Active Allergy Reactions Criticality Noted Date Comments Sulfa Antibiotics 10/09/2017 Medications Medication Sig Dispensed Refills Start Date End Date Status rivaroxaban (XARELTO) 15 MG TABS tablet Take 15 mg by mouth every 12 (twelve) hours. 0 Active Active Problems No known active problems Family History Medical History Relation Name Comments Deep vein thrombosis Brother 1 On eliq uis No Sig Med Hx Brother 2 No Sig Med Hx Daughter 1 No Sig Med Hx Daughter 2 Other Father unknown rare di sease Lupus Mother No Sig Med Hx Son Relation Name Status Comments Brother 1 Alive Brother 2 Alive Daughter 1 Alive Daughter 2 Alive Father Mother Alive Son Alive Social History Tobacco Use Types Packs/Day Years Used Date Smoking Tobacco: Never Smokeless Tobacco: Never Alcohol Use Standard Drinks/Week Comments No 0 (1 standard drink = 0.6 oz pur e alcohol) very occaisional Sex and Gender Information Value Date Recorded Sex Assigned at Not on file Gender Identity Not on file Sexual Orientation Not on file Last Filed Vital Signs Vital Sign Reading Time Taken Comments Blood Pressure 132/69 06/26/2018 2:49 PM EST Pulse 83 06/26/2018 2:49 PM EST Temperature 36.7 ??C (98.1 ??F) 06/26/2018 2:49 PM ES T Respiratory Rate - - Oxygen Saturation - - Inhaled Oxygen Concentration - - Weight 104.3 kg (230 lb) 06/26/2018 2:49 PM EST Height 190.5 cm (6' 3 ) 06/26/2018 2:49 PM EST Body Mass Index 28.75 06/26/2018 2:49 PM EST Plan of Treatment Health Maintenance Due Date Last Done Comments Hepatitis B Vaccines (1 of 3 - 3-dose series) 1965 Hepatitis C Screening 1965 COVID-19 Vaccine (#1) 1965 Depression Screening 1977 Preventative Health Evaluation 1983 DTap / Tdap / Td (1 - Tdap) 1984 Colon Cancer Screening (Colonoscopy) 2010 Shingrix-Zoster Vaccine (1 of 2) 2015 Influenza Vaccine (#1) 2023 Pneumococcal Vaccine Aged Out No long er eligible based on patient's age to complete this topic RSV Ped < 20 months Aged Out No longe r eligible based on patient's age to complete this topic Care Teams Bit Setter Relationship Specialty Start Date End Date Nicol Rivera MD [address] [place] [address] PCP - General Family Medicine 10/05/17
--- OUTSIDE RECORDS SUMMARY | 2024-06-12 07:47 | XMS_ITS | Clinical Summary ---
Author Organization [facility] Facility Address [address] [place] [id number] Care Team Providers Care Banking Specialist Name Role Phone Jama Kendrick MD Primary Care Provider Social History Tobacco Use Types Packs/Day Years Used Date Smoking Tobacco: Never Assessed Sex and Gender Information Value Date Recorded Sex Assigned at Not on file Legal Sex Male 11:48 AM EDT Gender Identity Not on file Sexual Orientation Not on file Plan of Treatment Health Maintenance Due Date Last Done Comments Hepatitis B Vaccine (1 of 3 - 19+ 3-dose series) 1984 Colorectal Cancer Screening: Annual FOBT 2014 Colorectal Cancer Screening: Colonoscopy 2014 Colorectal Cancer Screening: Sigmoidoscopy 2014 Influenza Vaccine (#1) 2023 Pneumococcal Vaccine: Pediat rics (0 to 5 Years) and At-Risk Patients (6 to 64 Years) Aged Out No longer eligible b ased on patient's age to complete [place] [id number] [facility] [id number] [place] [address] [facility] MEDICAID Care Teams Banking Specialist Relationship Specialty Start Date End Date Jama Kendrick MD [address] [place] [id number] PCP - General Family Medicine 09/23/21
== END 2024-06-12 07:46 | disposition home or self-care (01) ==
LOC: HO.RESP 07:45
PROVIDERS: PCP Family Medicine; Visit Provider Nurse Practitioner Family
DX: J45.909 Unspecified asthma, uncomplicated (principal)
CPT/HCPCS: 94010; 94640; 94727; 94729

== ENCOUNTER → 2024-06-12 07:47 | Outpatient (BNV) | payer OTHER, SELFPAY | PROVIDERS: PCP Family Medicine; Visit Provider Hospitalist | DX: J45.909 Unspecified asthma, uncomplicated (principal) | CPT/HCPCS: 94060; 94727; 94729 ==

== ENCOUNTER 2024-07-15 08:55 | Outpatient (AMB) | payer OTHER, SELFPAY ==
--- NOTE | 2024-07-15 08:57 | A.OFFVIS_ITS ---
Vital Signs 07/15/24 09:08 Height 6 ft 3 in Weight 244 lb BMI 30.5 BP 132/70 Blood Pressure Location Rt brachial Position Sitting Pulse 68 Pulse Source Palpation Pulse Oximetry (%) 100 Oxygen Delivery Method Room Air Intake Visit Reasons: Shortness of breath Mathematics Instructor Required: No Allergies Sulfa (Sulfonamide Antibiotics) Allergy (Mild, Verified 07/15/24 09:09) Rash Medication List - Last Reconciled 07/15/24 by Estelle Paz, MULTIPLE CUT OFF SAW OPERATOR albuterol sulfate 90 mcg/actuation (Ventolin HFA) 1 puff inhalation Q4-6H PRN 30 days fluticasone propion-salmeterol 115-21 mcg/actuation (Advair HFA) 2 puffs inhalation Q12H 30 days levalbuterol tartrate 45 mcg/actuation 1 puff inhalation Q4-6H PRN prednisone 20 mg PO DAILY rivaroxaban (Xarelto) 20 mg PO DAILY 90 days HPI HPI Shortness of breath: Details: Glen is a pleasant 59 year old male, never smoker, with underlying asthma, ERIK on CPAP and 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 Overall patient reports symptoms have been well controlled on current regimen of Histagaurd, currently denies any respiratory symptoms. He reports that exposure to chemical mathematical scientist precipitates bronchospasm, controlled short-term with Advair and levalbuterol MDI, though he limits its use due to cardiostimulatory effects. Episodes of exacerbation tend to relate to environmental changes or activities such as cleaning in confined areas, however infrequent. He does have a prednisone rx kept on hand for severe episodes, which he has not had to use. He does note concern with the upcoming allergy season triggering respiratory symptoms and is agreeable to trial ICS. Past imaging shows stable enlarged mediastinal lymph nodes and scarring. PFT has indicated significant responsiveness to bronchodilators on small to medium airways. The patient follows a treatment regimen for obstructive sleep apnea using CPAP, reporting favorable outcomes. Today he presents to review PFT resul ts. [facility] Medical History Lyme disease Surgical History Hx of tonsillectomy Social History Housing: House Alcohol intake: current Alcohol intake frequency: holidays/special occasions only Patient Tobacco Use Status: Never used Tobacco e-Cigarette/Vaping Use: Never Used Second Hand Smoke Exposure: No service: No Current occupational status: employed Cognitive needs: No Hearing needs: No Vision needs: Yes (Glasses) Review of Systems Const Denies chills, Denies excessive sweating, Denies fever(s), Denies headache(s) and Denies night sweats Eyes Denies dry eyes, Denies irritation and Denies itchy eyes ENT Reports Normal hearing present, Denies headache(s), Denies nasal congestion, Denies nasal discharge, Denies post nasal drip and Denies sore throat Card Denies chest pain, Denies chest pain at rest, Denies chest pain with activity, Denies claudication, Denies leg edema, Denies dyspnea, Denies dyspnea on exertion, Denies orthopnea and Denies paroxysmal nocturnal dyspnea Resp Denies chest congestion, Denies cough, Denies excessive phlegm production, Denies pain on inspiration, Denies pain with cough, Denies dyspnea, Denies dyspnea on exertion, Denies stridor and Denies wheezing Musc Denies myalgias Neuro Reports Normal hearing present and Denies headache(s) Endo Denies excessive sweating Stef/Lymph Denies lymphadenopathy Aller/Immun Denies itchy eyes, Denies seasonal rhinorrhea and Denies wheezing Physical Exam Const General: cooperative, healthy appearing, comfortable, no acute distress, well developed and alert Nutritional Appearance: obese Orientation/consciousness: patient oriented x3 Limitations: no limitations HEENT Head: Yes normal to inspection, Yes normocephalic and Yes atraumatic Ears: hearing grossly normal bilaterally and external ears normal Eyes General: appearance normal, both eyes and all related structures Eyelids: Yes eyelids normal Sclerae: sclerae normal EOM: EOMs intact bilaterally Neck Neck: Yes normal visual inspection and Yes no lymphadenopathy Lymphatic: no lymphadenopathy noted Chest Chest palpation & inspection: normal inspection of the chest Resp Effort & Inspection: normal respiratory effort, able to speak in complete sentences, no audible wheezes, no cough, no stridor, not tachypneic, no tripod positioning and no use of accessory muscles Auscultation: clear to auscultation bilaterally Cardio Jugular venous distension: no JVD Rate: regular rate Rhythm: regular rhythm Skin Other: warm, dry General skin exam: no rashes or lesions noted Neuro General: patient oriented x3 Cranial nerves: Yes Normal hearing present Cognition (Neuro): normal cognition Gait exam (Neuro): Normal gait present Extrem General: Yes normal to inspection, Yes capillary refill normal, Yes no clubbing, cyanosis or edema and Yes no pedal edema Psych Appearance: grossly normal and well kempt Speech and movement: Normal speech and movement present and Clear speech present Affect: normal affect Attitude: cooperative Thought process: Normal thought process present Thought content: Normal thought content present Insight: Good insight present (Psych) Judgement: Good judgement present (Psych) Assessment & Plan Assessment & Plan (1) Asthma: Code(s): J45.909 - Unspecified asthma, uncomplicated Category: Medical Qualifiers: Asthma complication type: uncomplicated Asthma persistence: intermittent Asthma severity: mild Qualified Code(s): J45.20 - Mild intermittent asthma, uncomplicated (2) Environmental allergies: Code(s): Z91.09 - Other allergy status, other than to drugs and biological substances Category: Medical (3) Cough: Code(s): R05.9 - Cough, unspecified Category: Medical Plan Reviewed PFT which revealed no obstructive ventilatory defects. No significant response to bronchodilators noted, except in small to medium airways. The patient does have a restrictive ventilatory defect consistent with mild restrictive lung disease. Could be related to an elevated BMI although parenchymal lung conditions and or neuromuscular conditions needs to be considered. Diffusing capacity is within normal limits. CTA from 10/2023 did not reveal any abnormalities of lung parenchyma. There was note of stable mediastinal lymphadenpathy, compared to CTA performed in 2020, however no measurements noted. Will obtain CTA images to further assess. Patient with known allergies which tend to trigger respiratory symptoms, will trial ICS, to avoid LABA component. Discussed importance of good oral hygiene to prevent thrush. All questions were answered and patient is in agreement of plan. Will follow up in two months or sooner if needed. Medications: New fluticasone furoate 100 mcg/actuation (Arnuity Ellipta) 1 inh inhalation DAILY 30 ea 6RF Coding Level of Care Code Est Pt Level 4 (34627) Diagnoses Mild intermittent asthma without complication J45.20 Asthma complication type: uncomplicated Asthma persistence: intermittent Asthma severity: mild Environmental allergies Z91.09 Cough R05.9
[2024-07-15 09:08] VITALS: BP 132/70; PULSE 68; O2SAT 100; BMI 30.5
--- OUTSIDE RECORDS SUMMARY | 2024-07-15 09:27 | XMS_ITS | Clinical Summary ---
Author Organization [facility] Address [address] [place] [address] Care Team Providers Care Manufacturing Process Technician Name Role Phone Nicol Rivera MD Primary Care Provider [phone] Allergies Active Allergy Reactions Criticality Noted Date [...] age to complete this topic Care Teams Manufacturing Process Technician Relationship Specialty Start Date End Date Nicol Rivera MD [address] [place] [address] PCP - General Family Medicine 10/05/17
--- OUTSIDE RECORDS SUMMARY | 2024-07-15 09:27 | XMS_ITS | Clinical Summary ---
Author Organization [facility] Facility Address [address] [place] [id number] Care Team Providers Care Dorr Operator Name Role Phone Jama Kendrick MD Primary [...] this [place] [address] [facility] [place] [id number] [place] [id number] [facility] MEDICAID Care Teams Dorr Operator Relationship Specialty Start Date End Date Jama Kendrick MD [address] [place] [id number] PCP - General Family Medicine 09/23/21
== END 2024-07-15 09:21 | disposition home or self-care (01) ==
LOC: HO.HPSW 08:55
PROVIDERS: PCP Family Medicine; Visit Provider Nurse Practitioner Family
DX: J45.20 Mild intermittent asthma, uncomplicated (principal); Z91.09 Other allergy status, other than to drugs and biological substances; R05.9 Cough, unspecified
CPT/HCPCS: 99214

== ENCOUNTER → 2024-07-15 08:55 | Outpatient (BNVA) | payer OTHER, SELFPAY | PROVIDERS: PCP Family Medicine; Visit Provider Nurse Practitioner Family | DX: G47.33 Obstructive sleep apnea (adult) (pediatric) (principal); J45.20 Mild intermittent asthma, uncomplicated; Z99.89 Dependence on other enabling machines and devices; Z86.718 Personal history of other venous thrombosis and embolism; Z79.01 Long term (current) use of anticoagulants; Z91.09 Other allergy status, other than to drugs and biological substances | CPT/HCPCS: 99212 ==

== ENCOUNTER 2024-09-17 09:00 | Outpatient (AMB) | payer OTHER, SELFPAY ==
--- NOTE | 2024-09-17 09:01 | A.OFFVIS_ITS ---
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 Patient reports excellent control of respiratory symptoms on albuterol MDI and Histagaurd, currently denies any respiratory symptoms. He denies any visits to urgent care hospitalizations related to respiratory distress and floss visit. Today he presents for routine visit. [facility] Medical History Lyme disease Surgical History Hx of tonsillectomy Social History Housing: House Alcohol intake: current Alcohol intake frequency: holidays/special occasions only Patient Tobacco Use Status: Never used Tobacco e-Cigarette/Vaping Use: Never Used Second Hand Smoke Exposure: No service: No Current occupational status: employed Cognitive needs: No Hearing needs: No Vision needs: Yes (Glasses) Review of Systems Const Denies chills, Denies excessive sweating, Denies fever(s), Denies headache(s) and Denies night sweats Eyes Denies dry eyes, Denies irritation and Denies itchy eyes ENT Reports Normal hearing present, Denies headache(s), Denies nasal congestion, Denies nasal discharge, Denies post nasal drip and Denies sore throat Card Denies chest pain, Denies chest pain at rest, Denies chest pain with activity, Denies claudication, Denies leg edema, Denies dyspnea, Denies dyspnea on exertion, Denies orthopnea and Denies paroxysmal nocturnal dyspnea Resp Denies chest congestion, Denies cough, Denies excessive phlegm production, Denies pain on inspiration, Denies pain with cough, Denies dyspnea, Denies dyspnea on exertion, Denies stridor and Denies wheezing Musc Denies myalgias Neuro Reports Normal hearing present and Denies headache(s) Endo Denies excessive sweating Stef/Lymph Denies lymphadenopathy Aller/Immun Denies itchy eyes, Denies seasonal rhinorrhea and Denies wheezing Physical Exam Vital Signs: Last Vital Signs Pulse 68 09/17/24 09:03 BP 128/72 09/17/24 09:03 Pulse Ox 97 09/17/24 09:03 Oxygen Delivery Method Room Air 09/17/24 09:03 BMI result Body Mass Index 29.9 Const General: cooperative, healthy appearing, comfortable, no acute distress, well developed and alert Orientation/consciousness: patient oriented x3 Limitations: no limitations HEENT Head: Yes normal to inspection, Yes normocephalic and Yes atraumatic Ears: hearing grossly normal bilaterally and external ears normal Eyes General: appearance normal, both eyes and all related structures Eyelids: Yes eyelids normal Sclerae: sclerae normal EOM: EOMs intact bilaterally Neck Neck: Yes normal visual inspection and Yes no lymphadenopathy Lymphatic: no lymphadenopathy noted Chest Chest palpation & inspection: normal inspection of the chest Resp Effort & Inspection: normal respiratory effort, able to speak in complete sentences, no audible wheezes, no cough, no stridor, not tachypneic, no tripod positioning and no use of accessory muscles Auscultation: clear to auscultation bilaterally Cardio Jugular venous distension: no JVD Rate: regular rate Rhythm: regular rhythm Skin Other: warm, dry General skin exam: no rashes or lesions noted Neuro General: patient oriented x3 Cranial nerves: Yes Normal hearing present Cognition (Neuro): normal cognition Gait exam (Neuro): Normal gait present Extrem General: Yes normal to inspection, Yes capillary refill normal, Yes no clubbing, cyanosis or edema and Yes no pedal edema Psych Appearance: grossly normal and well kempt Speech and movement: Normal speech and movement present and Clear speech present Affect: normal affect Attitude: cooperative Thought process: Normal thought process present Thought content: Normal thought content present Insight: Good insight present (Psych) Judgement: Good judgement present (Psych) Assessment & Plan Assessment & Plan (1) Asthma: Code(s): J45.909 - Unspecified asthma, uncomplicated Category: Medical Qualifiers: Asthma complication type: uncomplicated Asthma persistence: intermittent Asthma severity: mild Qualified Code(s): J45.20 - Mild intermittent asthma, uncomplicated (2) Environmental allergies: Code(s): Z91.09 - Other allergy status, other than to drugs and biological substances Category: Medical (3) Multiple pulmonary nodules: Code(s): R91.8 - Other nonspecific abnormal finding of lung field Category: Medical Plan At this time and reports good control of respiratory symptoms on current regimen, infrequently requiring albuterol MDI. Advised to continue. He is aware of symptoms changed office. Prior CTA from 10/2023 did not reveal any abnormalities of lung parenchyma. There was note of stable mediastinal lymphadenpathy, compared to CTA performed in 2020. Reviewed images from CTA which revealed approximately to 3 mm pulmonary nodules of the left lower lobe. Will send for repeat CT October 2024 to assess stability.. All questions were answered and patient is in agreement of plan. Will follow-up in 6 months or sooner if needed. Orders: Orders CT chest wo IV con 2 Months R91.8 - Other nonspecific abnormal finding of lung field Medications: Refilled albuterol sulfate 90 mcg/actuation (Ventolin HFA) 1 puff inhalation Q4-6H 30 days PRN 1 ea 6RF shortness of breath or wheezing Discontinued fluticasone propion-salmeterol 115-21 mcg/actuation (Advair HFA) Discontinued Reason: Patient Completed Course 2 puffs inhalation Q12H 30 days 12 grams 1RF Coding Level of Care Code Est Pt Level 4 (32266) Diagnoses Mild intermittent asthma without complication J45.20 Asthma complication type: uncomplicated Asthma persistence: intermittent Asthma severity: mild Environmental allergies Z91.09 Multiple pulmonary nodules R91.8
[2024-09-17 09:03] VITALS: BP 128/72; PULSE 68; O2SAT 97; BMI 29.9
--- OUTSIDE RECORDS SUMMARY | 2024-09-17 10:16 | XMS_ITS | Clinical Summary ---
Author Organization [facility] Facility Address [address] [place] [address] Care Team Providers Care Cardiology Coordinator Name Role Phone Jama Kendrick MD Primary [...] (1 of 3 - 19+ 3-dose series) 05/28 Colorectal Cancer Screening: Annual FOBT 2014 Colorectal Cancer Screening: Colonoscopy 2014 Colorectal Cancer Screening: Sigmoidoscopy 2014 Pneumococcal Vaccine: 50+ Years (1 of 1 - PCV) 016 Influenza Vaccine (Season Ended) 2024 [place] [id number] [facility] [place] [id number] [facility] Medicaid Care Teams Cardiology Coordinator Relationship Specialty Start Date End Date Jama Kendrick MD [address] [id number] PCP - General Family Medicine 09/23/21
--- OUTSIDE RECORDS SUMMARY | 2024-09-17 10:16 | XMS_ITS | Clinical Summary ---
Author Organization [facility] Address [address] [place] [address] Care Team Providers Care Car Detailer Name Role Phone Nicol Rivera MD Primary Care Provider [phone] [phone] Allergies Active Allergy Reactions Criticality Noted Date [...] age to complete this topic Care Teams Car Detailer Relationship Specialty Start Date End Date Nicol Rivera MD [address] [place] [address] PCP - General Family Medicine 10/05/17
== END 2024-09-17 09:26 | disposition home or self-care (01) ==
LOC: HO.HPSW 09:00
PROVIDERS: PCP Family Medicine; Visit Provider Nurse Practitioner Family
DX: J45.20 Mild intermittent asthma, uncomplicated (principal); Z91.09 Other allergy status, other than to drugs and biological substances; R91.8 Other nonspecific abnormal finding of lung field
CPT/HCPCS: 99214

== ENCOUNTER → 2024-09-17 09:00 | Outpatient (BNVA) | payer OTHER, SELFPAY | PROVIDERS: PCP Family Medicine; Visit Provider Nurse Practitioner Family | DX: J45.20 Mild intermittent asthma, uncomplicated (principal); R91.8 Other nonspecific abnormal finding of lung field; Z91.09 Other allergy status, other than to drugs and biological substances | CPT/HCPCS: 99212 ==

== ENCOUNTER 2025-01-05 08:06 | Outpatient (REF) | payer OTHER, SELFPAY ==
[2025-01-05 15:45] LABS: Alanine Aminotransferase 35 U/L (0-40); Albumin Level 4.3 g/dL (3.5-5.0); Alkaline Phosphatase 54 U/L (39-117); Anion Gap 11 (12-20); Aspartate Amino Transferase 28 U/L (5-37); Blood Urea Nitrogen 20 mg/dL (9-16); Calcium 8.8 mg/dL (8.4-10.2); Carbon Dioxide 26 mmol/L (22-29); Chloride 108 mmol/L (96-108); Cholesterol 144 mg/dL (<200); Estimated Glomerular Filt Rate > 60; HDL Cholesterol 41 mg/dL (>40); Potassium 4.3 mmol/L (3.3-5.1); Sodium 141 mmol/L (135-145); Total Protein 7.0 g/dL (6.5-8.0); Triglycerides 57 mg/dL (<150)
--- OUTSIDE RECORDS SUMMARY | 2025-01-05 18:21 | XMS_ITS | Clinical Summary ---
Author Organization [facility] Facility Address [address] [place] [address], [place] [address] Care Team Providers Care Clinical Specialist Medical Device Name Role Phone Jama Kendrick MD Primary [...] (#1) 2024 [place] [id number] [facility] [place] [id number] [facility] Medicaid Care Teams Clinical Specialist Medical Device Relationship Specialty Start Date End Date Jama Kendrick MD [address] [phone] PCP - General Family Medicine 09/23/21
--- OUTSIDE RECORDS SUMMARY | 2025-01-05 18:21 | XMS_ITS | Clinical Summary ---
Author Organization [facility] Address [address] [place] [address] Care Team Providers Care Presto Log Operator Name Role Phone Nicol Rivera MD Primary [...] age to complete this topic Care Teams Presto Log Operator Relationship Specialty Start Date End Date Nicol Rivera MD [address] [place] [address] PCP - General Family Medicine 10/05/17
== END 2025-01-05 08:07 | disposition home or self-care (01) ==
LOC: HO.WFDLDS 08:06
PROVIDERS: PCP Family Medicine; Visit Provider Nurse Practitioner Family
DX: Z00.00 Encounter for general adult medical examination without abnormal findings (principal); Z12.11 Encounter for screening for malignant neoplasm of colon; R73.03 Prediabetes; Z28.21 Immunization not carried out because of patient refusal; R74.01 Elevation of levels of liver transaminase levels; N28.1 Cyst of kidney, acquired; G47.33 Obstructive sleep apnea (adult) (pediatric); J45.20 Mild intermittent asthma, uncomplicated; D68.69 Other thrombophilia; Z91.09 Other allergy status, other than to drugs and biological substances; Z99.89 Dependence on other enabling machines and devices; Z79.01 Long term (current) use of anticoagulants; Z86.718 Personal history of other venous thrombosis and embolism; Z86.711 Personal history of pulmonary embolism
CPT/HCPCS: 36415; 80053; 80061; 83036; 96127; 96160; 99396

== ENCOUNTER 2025-01-05 08:06 | Outpatient (AMB) | payer OTHER, SELFPAY ==
--- NOTE | 2025-01-05 08:11 | A.OFFPC_ITS ---
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: No Allergies Sulfa (Sulfonamide Antibiotics) Allergy (Mild, Verified 01/05/25 08:21) Rash Medication List - Last Reconciled 01/05/25 by IVORY GuajardoP- albuterol sulfate 90 mcg/actuation (Ventolin HFA) 1 puff inhalation Q4-6H PRN 30 days rivaroxaban (Xarelto) 20 mg PO DAILY 90 days Tobacco use date assessed: 01/05/25 Dental Screening Dental Screen Date: 01/05/25 Did you have a dental visit in the last 12 months?: Yes Did you have a dental problem in the last 6 months where you did not have access to dental care?: No Was dental information given to patient?: Patient has dentist HPI HPI Comments History of Present Illness Details 59 y/o M with asthma, elevated LFT, pred iabetes, ERIK on CPAP, hx of PE and DVT, Health Maintenance Colon reports done at [facility], unsure when, will request report Tdap declined Optho wears glasses, last exam 1 year ago. Specialist As documented in chart History of Present Illness - The patient is a 59-year-old male pres enting for a complete physical exam. - Asthma treated with albuterol. - Obstructive sleep apnea with nightly C PAP use. 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 - Prediabetes, with A1c decreased from 5 .5 to 5.4. - Decreased leg swelling; left leg large r than right. - Pending retrieval of colonoscopy repor t. Family History - No changes in family medical history r eported Health Maintenance - Tetanus vaccination offered & declined . - Colonoscopy report pending; potential need for repeat screening based on findings Review of Systems - Respiratory: Reports using albuterol f or asthma; denies need for additional breathing aid despite occasional illness - Dermatologic: Denies new skin lesions or rashes - General: Denies any recent surgeries o r hospitalizations - Gastrointestinal: Reports regular pat l and urinary function Physical Exam General: Well developed, well nourished, in no acute distress. Appears stated age. Head: Normocephalic, atraumatic. Eyes: Pupils are equal, round and reactive to light and accommodation. Conjunctivae are clear. Vision grossly normal. Ears: TMs clear AU, EACS WNL. A little bit of fluid noted in one ear, likely due to seasonal allergies. Nose: Patent, without discharge. Neck: Supple, no adenopathy or thyromegaly. No pain or tenderness noted. Breast: Edu on SBE Lungs: Clear to auscultation bilaterally. No rales, rhonchi or wheeze noted. Good air flow in all gomez. Heart: Regular rate and rhythm. No murmurs, click, rubs or gallops are noted. Abdomen: Bowel sounds present in all quadrants. The abdomen is soft, nontender, with no masses or organomegaly noted. No hernias are noted. : Deferred. Reviewed EARLINE & recommendations Pulses: Peripheral pulses are equal and palpable bilaterally. Extremities: No clubbing, cyanosis noted. Nonpitting edema BLE L>R baseline Neurologic: Gait and station normal. Cranial Nerves 2-12 intact. Motor strength grossly symmetrical and intact. No sensory loss. Balance normal. Skin: No new rashes, ulcers, or lesions noted. Turgor is good. Skin color is good. Hair and nails are without abnormalities. Psych: Normal eye contact, affect and mood appropriate, and normal interactions. Patient is alert and appropriate to context. Results - Labs: A1c at 5.4, previously 5.5 Discussion Notes During this visit, I conducted a complete physical examination and reviewed the management of my patient's chronic conditions. I discussed the status of his asthma and confirmed his continued use of albuterol. We also reviewed his management of obstructive sleep apnea with CPAP and anticoagulation therapy with Xarelto for his history of pulmonary embolism and deep vein thrombosis. Noting no new symptoms or significant changes, I suggested he continue his current management plan. I discussed the decrease in his A1c level and emphasized the importance of ongoing monitoring of his prediabetes. I offered a tetanus booster, discussed the need for obtaining his colonoscopy report for further assessment of ongoing colon cancer screening needs, and noted the current stability in his leg swelling. We reviewed his upcoming lab orders, and I provided instructions for obtaining blood work soon after the completion of his physical exam. Patient was given time to ask questions. All questions were answered to their satisfaction. Assessment and Plan 1. Asthma - Continue albuterol. - Evaluate need for additional intervent ions PRN. 2. Obstructive Sleep Apnea - Continue CPAP. 3. Pulmonary Embolism/DVT - Maintain Xarelto therapy. - Monitor for thromboembolism recurrence . 4. Elevated Liver Function Tests - Monitor liver function tests. 5. Prediabetes - Encourage lifestyle modifications. - Repeat A1c with labs. 6. Colon Cancer Screening - Obtain colonoscopy report. - Determine further screening needs. Patient Instructions - Continue taking albuterol as needed an d use CPAP every night. - Keep taking Xarelto and watch for any signs of blood clots. - Keep up the healthy eating and exercis e to help with prediabetes. - Please get labs done before leaving to day. - Check colonoscopy results; follow up a s needed. - RTO 6 mo with repeat labs fu prediabet es/LFT/Renal cyst Sooner as needed. Consent Patient was informed and verbally consented to the use of an ambient scribe for clinic note documentation during this visit. [facility] Medical History Lyme disease Surgical History (Reviewed 02/06/24 @ 08:50 by Adelaida Hawthorne REPLACED BY [facility]) Hx of tonsillectomy Social History Housing: House Alcohol intake: current Alcohol intake frequency: holidays/special occasions only Patient Tobacco Use Status: Never used Tobacco e-Cigarette/Vaping Use: Never Used Second Hand Smoke Exposure: No service: No Current occupational status: employed Cognitive needs: No Hearing needs: No Vision needs: Yes (Glasses) Questionnaire PHQ-9 Over the last 2 weeks, how often have you been bothered by any of the following problems? 1. Little interest or pleasure in doing things: not at all 2. Feeling down, depressed, or hopeless: not at all 3. Trouble falling or staying asleep, or sleeping too much: not at all 4. Feeling tired or having little energy: not at all 5. Poor appetite or overeating: not at all 6. Feeling bad about yourself - or that you are a failure or have let yourself or your family down: not at all 7. Trouble concentrating on things, such as reading the newspaper or watching television: not at all 8. Moving or speaking so slowly that other people could have noticed. Or the opposite - being so fidgety or restless that you have been moving around a lot more than usual: not at all 9. Thoughts that you would be better off or of hurting yourself in some way: not at all Total score: 0 Depression Screening Interpretation: Negative Depression Screening Done: Yes [id number] - PHQ-9 Billing: Yes Source: Developed by Drs. Milan Robert, Elizabeth Foy, Byron Gamboa and colleagues, with an educational bita from [employer]. Thrive Questionnaire Date Thrive assessed: 01/05/25 I am a: Patient What is your living situation today?: I have a steady place to live Within the past 12 months, did the food you bought not last and you didn't have the money to get more?: Never true Within the past 12 months, did you worry whether your food would run out before you got money to buy more?: Never true Do you have trouble paying for medicines?: No Do you have trouble getting transportation to medical appointments?: No Do you have trouble paying your heating and electricity bill?: No Do you have trouble taking care of your child, family member or friend?: No Do you have trouble with day-to-day activities such as bathing, preparing meals, shopping, managing finances, etc.?: No Are you currently unemployed and looking for a job?: No Are you interested in more education?: No THRIVE Score: 0 AUDIT C Alcohol Use Questionnaire (AUDIT-C) 1. How often do you have a drink containing alcohol?: Never 2. How many drinks containing alcohol do you have on a typical day when you are drinking?: 1 or 2 3. How often do you have six or more drinks on one occasion?: Never Total Score: 0 Score Reviewed/Action Taken: Yes KYLE-7 AMB Questionnaire KYLE-7 Date KYLE - 7 assessed: 01/05/25 Feeling nervous, anxious, or on edge: 0 = Not at all Not being able to stop or control worryin = Not at all Worrying too much about different things: 0 = Not at all Trouble relaxin = Not at all Being so restless that it is hard to sit still: 0 = Not at all Becoming easily annoyed or irritable: 0 = Not at all Feeling afraid as if something awful might happen: 0 = Not at all Total KYLE-7 score (0-4 normal; 5-9 mild; 10-14 moderate; 15-21 severe): 0 Source: Developed by Drs. Milan Robert, Elizabeth Foy, Byron Gamboa and colleagues, with an educational bita from [employer]. KYLE-7 Assessment Billing KYLE-7 Assessment Tool: KYLE-7 Assessment 40957 ACT Questionnaire In the past 4 weeks, how much of the time did your asthma keep you from getting as much done at work, school or at home?: None of the time During the past 4 weeks, how often have you had shortness of breath?: Not at all During the past 4 weeks, how often did your asthma symptoms wake you up at night or earlier than usual in the morning?: Not at all During the past 4 weeks, how often have you had to use your rescue inhaler or nebulizer medication?: Not at all How would you rate your asthma control during the past 4 weeks?: Completely controlled ACT Interpretation: Negative Score: 25 Physical exam (Primary Care) Vital Signs: Last Vital Signs Temp 97.2 F 01/05/25 08:16 Pulse 64 01/05/25 08:16 Resp 12 01/05/25 08:16 BP 132/74 01/05/25 08:16 Pulse Ox 95 01/05/25 08:16 Oxygen Delivery Method Room Air 01/05/25 08:16 BMI result Body Mass Index 29.5 Tobacco/Smoking Status: Tobacco use Status Tobacco use date assessed 01/05/25 01/05/25 08:14 Patient Tobacco Use Status Never used Tobacco 01/05/25 08:12 e-Cigarette/Vaping Use Never Used 01/05/25 08:12 PHQ-9: PHQ-9 Score PHQ-9: Total score 0 01/05/25 08:12 Depression Screening Interpretation: Negative Thrive Assessment: Date of Thrive Assessment Date Thrive assessed 01/05/25 01/05/25 08:12 Results AMB Hemoglobin A1c AMB Hemoglobin A1c 5.4 % Last Edit by Joann Camejo MA on 01/05/25 08:26 Coding Level of Care Code Est Pt Prev Care 40-64y(39471) Diagnoses Adult general medical exam Z00.00 Pre-diabetes R73.03 ERIK on CPAP G47.33; Z99.89 Personal history of DVT (deep vein thrombosis) Z86.718 History of pulmonary embolism Z86.711 Elevated liver transaminase level R74.01 Renal cyst N28.1 Mild intermittent asthma without complication J45.20 Asthma complication type: uncomplicated Asthma persistence: intermittent Asthma severity: mild Tetanus, diphtheria, and acellular pertussis (Tdap) vaccination declined Z28.21 Environmental allergies Z91.09 Screening for colon cancer Z12.11 Secondary hypercoagulable state D68.69 Additional Codes Asthma Control Questionnaire - ACT Interpretation: Negative ([id number]) KYLE-7 Assessment Billing - KYLE-7 Assessment Tool: KYLE-7 Assessment 15592 ([id number]) PHQ-9 - 36958 - PHQ-9 Billing: Yes ([id number]) Assessment & Plan Assessment & Plan (1) Adult general medical exam: Onset Date: ~01/05/25 Code(s): Z00.00 - Encounter for general adult medical examination without abnormal findings Category: Medical (2) Pre-diabetes: Code(s): R73.03 - Prediabetes Category: Medical (3) ERIK on CPAP: Comment: Severe degree of sleep apnea. The AHI was 24/hr and oxygen mariaa was 79% Code(s): G47.33 - Obstructive sleep apnea (adult) (pediatric); Z99.89 - Dependence on other enabling machines and devices Category: Medical (4) Personal history of DVT (deep vein thrombosis): Code(s): Z86.718 - Personal history of other venous thrombosis and embolism Category: Medical (5) History of pulmonary embolism: Code(s): Z86.711 - Personal history of pulmonary embolism Category: Medical (6) Elevated liver transaminase level: Code(s): R74.01 - Elevation of levels of liver transaminase levels Category: Medical (7) Renal cyst: Code(s): N28.1 - Cyst of kidney, acquired Category: Medical (8) Asthma: Code(s): J45.909 - Unspecified asthma, uncomplicated Category: Medical Qualifiers: Asthma complication type: uncomplicated Asthma persistence: intermitten t Asthma severity: mild Qualified Code(s): J45.20 - Mild intermittent asthma, uncomplicated (9) Tetanus, diphtheria, and acellular pertussis (Tdap) vaccination declined: Code(s): Z28.21 - Immunization not carried out because of patient refusal Category: Medical (10) Environmental allergies: Code(s): Z91.09 - Other allergy status, other than to drugs and biological substances Category: Medical (11) Screening for colon cancer: Code(s): Z12.11 - Encounter for screening for malignant neoplasm of colon Category: Medical (12) Secondary hypercoagulable state: Code(s): D68.69 - Other thrombophilia Category: Medical Plan . Orders: Orders Comprehensive [place]. Panel Fast 6 Months N28.1 - Cyst of kidney, acquired, R73.03 - Prediabetes, R74.01 - Elevation of levels of liver transaminase levels Hemoglobin A1c 6 Months N28.1 - Cyst of kidney, acquired, R73.03 - Prediabetes, R74.01 - Elevation of levels of liver transaminase levels AMB Hemoglobin A1c Today Z13.9 - Encounter for screening, unspecified Lipid Panel 6 Months N28.1 - Cyst of kidney, acquired, R73.03 - Prediabetes, R74.01 - Elevation of levels of liver transaminase levels Patient Instructions: Health screenings for men You should visit your health care provider regularly, even if you feel healthy. The purpose of these visits is to: Screen for medical issues Assess your risk for future medical problems Encourage a healthy lifestyle Update vaccinations and other preventive care services Help you get to know your provider in case of an illness Information Even if you feel fine, you should still see your provider for regular checkups. These visits can help you avoid problems in the future. For example, the only way to find out if you have high blood pressure is to have it checked regularly. High blood sugar and high cholesterol level also may not have any symptoms in the early stages. Simple blood tests can check for these conditions. There are specific times when you should see your provider or receive specific health screenings. The [place] Preventive Services Task Force publishes a list of recommended screenings. Below are screening guidelines for men ages 40 to 64. BLOOD PRESSURE SCREENING Have your blood pressure checked at least once every year. Watch for blood pressure screenings in your area. Ask your provider if you can stop in to have your blood pressure checked. Ask your provider if you need your blood pressure checked more often if: You have diabetes, heart disease, kidney problems, or are overweight or have certain other health conditions You have a first-degree relative with high blood pressure You are Black Your blood pressure top number is from 120 to 129 mm Hg, or the bottom number is from 70 to 79 mm Hg If the top number is 130 mm Hg or greater or the bottom number is 80 mm Hg or greater, this is considered stage 1 hypertension. Schedule an appointment with your provider to learn how you can lower your blood pressure. Effects of age on blood pressure CHOLESTEROL SCREENING Cholesterol screening should begin at age 35 for men with no known risk factors for coronary heart disease. Repeat cholesterol screening should take place: Every 5 years for men with normal cholesterol levels More often if changes occur in lifestyle (including weight gain and diet) More often if you have diabetes, heart disease, kidney problems, or certain other conditions COLORECTAL CANCER SCREENING If you are under age 45, talk to your provider about getting screened. You may need to be screened if you have a strong family history of colon cancer or polyps. Screening may also be considered if you have risk factors such as a history of inflammatory bowel disease or polyps. If you are age 45 to 75, you should be screened for colorectal cancer. There are several screening tests available: A stool-based fecal occult blood (gFOBT) or fecal immunochemical test (FIT) every year A stool sDNA test every 1 to 3 years Flexible sigmoidoscopy every 5 years or every 10 years with stool testing FIT done every year CT colonography (virtual colonoscopy) every 5 years Colonoscopy every 10 years You may need a colonoscopy more often if you have risk factors for colorectal cancer, such as: Ulcerative colitis A personal or family history of colorectal cancer A history of growths in your colon called adenomatous polyps DENTAL EXAM Go to the dentist once or twice every year for an exam and cleaning. Your dentist will evaluate if you have a need for more frequent visits. DIABETES SCREENING All adults who do not have risk factors for diabetes should be screened starting at age 35 and repeated every 3 years. If you have other risk factors for diabetes, such as a first degree relative with diabetes, overweight or obesity, high blood pressure, prediabetes, or a history of heart disease, you may be tested more often. If you are overweight and have other risk factors, such as high blood pressure and are planning to become , screening is recommended. EYE EXAM Have an eye exam every 2 to 4 years ages 40 to 54 and every 1 to 3 years ages 55 to 64. Your provider may recommend more frequent eye exams if you have vision problems or glaucoma risk. Have an eye exam that includes an examination of your retina (back of your eye) at least every year if you have diabetes. IMMUNIZATIONS Commonly needed vaccines include: Flu shot: get one every year COVID-19 vaccine: ask your provider what is best for you Tetanus-diphtheria and acellular pertussis (Tdap) vaccine: have as one of your tetanus-diphtheria vaccines if you did not receive it as an adolescent Tetanus-diphtheria: have a booster (or Tdap) every 10 years Varicella vaccine: receive 2 doses if you never had chickenpox or the varicella vaccine and were born in 1979 or after Hepatitis B vaccine: receive 2, 3, or 4 doses, depending on your exact circumstances, if you did not receive these as a child or adolescent, until age 59 Shingles (herpes zoster) vaccine: at or after age 50 Ask your provider if you should receive other immunizations, especially if you have certain medical conditions, such as diabetes or are at increased risk for some diseases such as pneumonia. INFECTIOUS DISEASE SCREENING Screening for hepatitis C: all adults ages 18 to 79 should get a one-time test for hepatitis C. Screening for human immunodeficiency virus (HIV): all people ages 15 to 65 should get a one-time test for HIV. Depending on your lifestyle and medical history, you may need to be screened for infections such as syphilis, chlamydia, and other infections. LUNG CANCER SCREENING You should have an annual screening for lung cancer with low-dose computed tomography (LDCT) if: You are age 50 to 80 years AND You have a 20 pack-year smoking history AND You currently smoke or have quit within the past 15 years OSTEOPOROSIS SCREENING If you are age 50 to 64 and have risk factors for osteoporosis, you should discuss screening with your provider. Risk factors can include long-term steroid use, low body weight, smoking, heavy alcohol use, having a fracture after age 50, or a family history of hip fracture or osteoporosis. Osteoporosis PHYSICAL EXAM All adults should visit their provider from time to time, even if they are healthy. The purpose of these visits is to: Screen for diseases Assess risk of future medical problems Encourage a healthy lifestyle Update vaccinations and other preventive care services Maintain a relationship with a provider in case of an illness Your height, weight, and body mass index (BMI) should be checked at every exam. During your exam, your provider may ask you about: Depression and anxiety Diet and exercise Alcohol and tobacco use Safety, such as use of seat belts and smoke detectors Your medicines and risk for interactions PROSTATE CANCER SCREENING If you're 55 through 69 years old, before having the test, talk to your provider about the pros and cons of having a PSA test. Ask about: Whether screening decreases your chance of dying from prostate cancer. Whether there is any harm from prostate cancer screening, such as side effects from testing or overtreatment of cancer when discovered. Whether you have a higher risk of prostate cancer than others. If you are age 55 or younger, screening is not generally recommended. You should talk with your provider about if you have a higher risk for prostate cancer. Risk factors include: Having a family history of prostate cancer (especially a brother or father) Being If you choose to be tested, the PSA blood test is repeated over time (yearly or less often), though the best frequency is not known. Prostate examinations are no longer routinely done on men with no symptoms. Prostate cancer SKIN EXAM Your provider may check your skin for signs of skin cancer, especially if you're at high risk. People at high risk include those who have had skin cancer before, have close relatives with skin cancer, or have a weakened immune system. TESTICULAR EXAM The [place] Preventive Services Task Force (USPSTF) now recommends against performing testicular self-exams. Doing testicular self-exams has been shown to have little to no benefit.
[2025-01-05 08:16] VITALS: BP 132/74; PULSE 64; RESP 12; TEMP 36.2; O2SAT 95; BMI 29.5
--- OUTSIDE RECORDS SUMMARY | 2025-01-05 08:47 | XMS_ITS | Clinical Summary ---
Author Organization [facility] Facility Address [address] [place] [address], [place] [address] Care Team Providers Care Feed Preparation Operator Name Role Phone Jama Kendrick MD Primary Care Provider [phone] Social History Tobacco Use Types Packs/Day Years [...] of 1 - PCV) 016 Influenza Vaccine (#1) 2024 [place] [id number] [facility] [place] [id number] [facility] Medicaid Care Teams Feed Preparation Operator Relationship Specialty Start Date End Date Jama Kendrick MD [address] [id number] PCP - General Family Medicine 09/23/21
--- OUTSIDE RECORDS SUMMARY | 2025-01-05 08:47 | XMS_ITS | Clinical Summary ---
Author Organization [facility] Address [address] [place] [address] Care Team Providers Care Turn Laster Name Role Phone Nicol Rivera MD Primary Care Provider Allergies Active Allergy Reactions Criticality Noted Date [...] 83 06/26/2018 2:49 PM EST Temperature 36.7 C (98.1 F) 06/26/2018 2:49 PM EST Respiratory Rate - - Oxygen Saturation - [...] (1 of 2) 2015 Influenza Vaccine (#1) 2024 Pneumococcal Vaccine Aged Out No long er eligible based on patient's age to complete this topic RSV Ped < 20 months Aged Out No longe r eligible based on patient's age to complete this topic Care Teams Turn Laster Relationship Specialty Start Date End Date Nicol Rivera MD [address] [place] [address] PCP - General Family Medicine 10/05/17
== END 2025-01-05 08:36 | disposition home or self-care (01) ==
PROVIDERS: PCP Family Medicine; Visit Provider Nurse Practitioner Family
DX: Z00.00 Encounter for general adult medical examination without abnormal findings (principal); R73.03 Prediabetes; G47.33 Obstructive sleep apnea (adult) (pediatric); Z99.89 Dependence on other enabling machines and devices; Z86.718 Personal history of other venous thrombosis and embolism; Z86.711 Personal history of pulmonary embolism; R74.01 Elevation of levels of liver transaminase levels; N28.1 Cyst of kidney, acquired; J45.20 Mild intermittent asthma, uncomplicated; Z28.21 Immunization not carried out because of patient refusal; Z91.09 Other allergy status, other than to drugs and biological substances; Z12.11 Encounter for screening for malignant neoplasm of colon; D68.69 Other thrombophilia; Z13.9 Encounter for screening, unspecified

== ENCOUNTER 2025-02-05 07:55 | Outpatient (AMB) | payer OTHER, SELFPAY ==
--- NOTE | 2025-02-05 08:04 | A.OFFVIS_ITS ---
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 He denies any significant medical history changes since his last visit. He states he continues to sleep well with his CPAP machine. He reports using his machine nightly; however, usage is sometimes not captured when he is traveling in areas with poor Wi-Fi connections. He states he uses distilled water in the CPAP water tank reservoir, cleans and changes his CPAP supplies routinely, and has enough CPAP supplies. CPAP compliance report reviewed: [place] [id number] Email: [email or web address] Compliance Report Usage 01/07/2024 - 02/05/2024 Overall usage: 99% Usage greater than 4 hours: 99% Average usage (days used): 8 hours 40 minutes AirSense 10 AutoSet Serial number [id number] Mode AutoSet Min Pressure 5-20 cmH2O EPR 3 * Maximum pressure: 9.3 cm H2O Leaks: * Median: 1.3 L/min * Maximum: 110.4 L/min Residual events: AHI: 0.3 per hour [facility] Medical History Lyme disease Surgical History Hx of tonsillectomy Social History Housing: House Alcohol intake: current Alcohol intake frequency: holidays/special occasions only Patient Tobacco Use Status: Never used Tobacco e-Cigarette/Vaping Use: Never Used Second Hand Smoke Exposure: No service: No Current occupational status: employed Cognitive needs: No Hearing needs: No Vision needs: Yes (Glasses) Physical Exam Vital Signs: Last Vital Signs Pulse 75 02/05/25 08:05 BP 150/84 H 02/05/25 08:05 Pulse Ox 95 02/05/25 08:05 Oxygen Delivery Method Room Air 02/05/25 08:05 BMI result Body Mass Index 30.2 Const General: no acute distress Orientation/consciousness: patient oriented x3 HEENT Other: Mallampati stage Resp Effort & Inspection: normal respiratory effort and able to speak in complete sentences Neuro General: patient oriented x3 Psych Mental Status: mental status grossly normal Speech and movement: Clear speech present Attitude: cooperative Assessment & Plan Assessment & Plan (1) ERIK on CPAP: Comment: Severe degree of sleep apnea. The AHI was 24/hr and oxygen mariaa was 79% Code(s): G47.33 - Obstructive sleep apnea (adult) (pediatric); Z99.89 - Dependence on other enabling machines and devices Category: Medical Plan Continue APAP 5-20 cmH2O w/ EPR 3 nightly > 4 hours, as pt continues to have good clinical effect from use. Clean CPAP machine and supplies routinely. Change CPAP supplies routinely. Use distilled water in CPAP water tank reservoir. Pt to contact us or respiratory company with any questions or concerns. Pt to follow-up in 12 months or sooner prn. Coding Level of Care Code Est Pt Level 3 (25356) Diagnoses ERIK on CPAP G47.33; Z99.89
[2025-02-05 08:05] VITALS: BP 150/84; PULSE 75; O2SAT 95; BMI 30.2
== END 2025-02-05 08:39 | disposition home or self-care (01) ==
LOC: HO.HSMS 07:56
PROVIDERS: PCP Family Medicine; Visit Provider Nurse Practitioner Family
DX: G47.33 Obstructive sleep apnea (adult) (pediatric) (principal); Z99.89 Dependence on other enabling machines and devices
CPT/HCPCS: 99213

== ENCOUNTER → 2025-02-05 07:55 | Outpatient (BNVA) | payer OTHER, SELFPAY | PROVIDERS: PCP Family Medicine; Visit Provider Nurse Practitioner Family | DX: G47.33 Obstructive sleep apnea (adult) (pediatric) (principal); Z99.89 Dependence on other enabling machines and devices | CPT/HCPCS: 99212 ==